=== PATIENT | male | born 1955 | race American Indian/Alaskan Native ===

== ENCOUNTER 2018-12-24 21:14 | Observation (INO) | payer MEDICAID, SELFPAY ==
[2018-12-24 21:15] VITALS: BP 125/64; PULSE 95; RESP 28; TEMP 37.2; O2SAT 93; BMI 41.5
--- NOTE | 2018-12-24 21:42 | ED.URI ---
HPI - URI/Sore Throat General Chief Complaint: Upper Respiratory Symptoms Stated Complaint: cough, hard time breathing, fever Time Seen by Provider: 12/24/18 21:24 Source: patient and family Mode of arrival: ambulatory Limitations: no limitations History of Present Illness HPI Narrative: A 63-year-old female former smoker with extensive cardiac history and diabetes presents with 3-4 days of worsening fever cough and difficulty in breathing. He has been using increased bronchodilators home with minimal relief. He admits to nausea but no vomiting. He has had no chest pain is not dizzy or lightheaded. He did have his flu shot MD Complaint: fever and cough Onset (ago): day(s) Duration: constant and progressively worsening Severity: moderate Relieving factors: nothing Exacerbating factors: exertion and speaking Able to tolerate fluids by mouth: Yes Associated symptoms: fever, chills, myalgias and headache Treatments prior to arrival: none Related Data Home Medications Medication Instructions Recorded Confirmed ProAir HFA 1 puff INHALATION Q4-6H PRN 12/25/18 12/25/18 aspirin 81 mg PO DAILY 12/25/18 12/25/18 budesonide [Pulmicort Flexhaler] 2 inh INHALATION Q12H 12/25/18 12/25/18 cetirizine 10 mg PO DAILY 12/25/18 12/25/18 ferrous sulfate 325 mg PO DAILY 12/25/18 12/25/18 fexofenadine [Allergy Relief 180 mg PO DAILY 12/25/18 12/25/18 (fexofenadine)] gabapentin 800 mg PO TID 12/25/18 12/25/18 insulin glargine-lixisenatide 30 units SUBCUT QAM 12/25/18 12/25/18 [Soliqua 100/33] ipratropium-albuterol [Combivent 1 puff INHALATION 6XD 12/25/18 12/25/18 Respimat] lisinopril 20 mg PO DAILY 12/25/18 12/25/18 metformin [Glucophage XR] 750 mg PO QPM 12/25/18 12/25/18 metoprolol succinate [Toprol XL] 50 mg PO DAILY 12/25/18 12/25/18 naproxen [Naprosyn] 500 mg PO BID 12/25/18 12/25/18 omeprazole 20 mg PO DAILY 12/25/18 12/25/18 ranitidine HCl [Zantac] 300 mg PO BEDTIME 12/25/18 12/25/18 simvastatin [Zocor] 40 mg PO QPM 12/25/18 12/25/18 tamsulosin [Flomax] 0.4 mg PO DAILY 12/25/18 12/25/18 Allergies Allergy/AdvReac Type Severity Reaction Status Date / Time No Known Drug Allergies Allergy Verified 12/24/18 21:22 Review of Systems Constitutional Reports chills, Reports fever(s), Reports headache(s), Denies lethargy and Denies weakness Eyes Denies change in vision, Denies eye discharge, Denies irritation and Denies loss of vision ENT Ears, Nose, Mouth, and Throat: Denies change in voice, Reports headache(s), Denies neck pain and Denies sore throat Cardiovascular Denies chest pain, Denies irregular heart rhythm, Denies lightheadedness, Denies palpitations, Denies dyspnea, Reports dyspnea on exertion and Denies orthopnea Respiratory Reports cough, Denies dyspnea, Reports dyspnea on exertion and Denies wheezing Gastrointestinal Gastrointestinal: Denies abdominal pain, Denies change in bowel habits, Denies diarrhea, Denies nausea and Denies vomiting Genitourinary Denies hematuria, Denies flank pain, Denies urinary incontinence and Denies urinary urgency Musculoskeletal Denies neck pain Integumentary/Breasts Denies pruritus, Denies erythema, Denies rash and Denies wounds Neurologic Denies confusion, Reports headache(s), Denies loss of vision and Denies weakness Psychiatric Denies anxiety, Denies confusion, Denies depression, Denies homicidal ideation and Denies suicidal ideation Endocrine Denies palpitations Hematologic/Lymphatic Denies easy bruising Allergic/Immunologic Denies wheezing [facility] Medical History 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 Normocephalic. No temporal or scalp tenderness. EYES: Pupils equal round and reactive. Extraocular motions intact. No scleral icterus. No injection or drainage. ENT: Nose without bleeding, purulent drainage or septal hematoma. Throat without erythema, tonsillar hypertrophy or exudate. Uvula midline. Airway patent. NECK: Trachea midline. No JVD or lymphadenopathy. Supple, nontender, no meningeal signs. CARDIOVASCULAR: Regular rate and rhythm without murmurs, gallops, or rubs. RESPIRATORY: Decreased breath sounds bilaterally with a prolonged expiratory phase and a faint crackle at the base GASTROINTESTINAL: Abdomen soft, non-tender, nondistended. No hepato-splenomegaly, or palpable masses. No guarding. EXTREMITIES: No clubbing, cyanosis, or edema. No joint tenderness, effusion, or edema noted. BACK: Nontender without deformity or crepitance. No flank tenderness. NEURO: AOx3. SKIN: No rash or erythema. Initial Vital Signs Initial Vital Signs: Vital Signs Temperature 99.0 F 12/24/18 21:15 Pulse Rate 95 H 12/24/18 21:15 Respiratory Rate 28 H 12/24/18 21:15 Blood Pressure 125/64 12/24/18 21:15 Pulse Oximetry 93 12/24/18 21:15 Course Course Narrative: There is a bit of a delay in that complete workup on this gentleman who is becoming increasingly short of breath while here. He is developing conversational dyspnea and the hope was that he would improve after some bronchodilators but if anything he seems worse. Given his diagnosis of flu, hypoxia, history of COPD and cardiac disease he will require admission for stabilization Orders Ordered: ED Orders 12/24/18 21:43 XR chest 2V Stat 12/24/18 21:50 Influenza A and B by PCR Rapid Stat 12/24/18 22:54 Consult to Respiratory Therapy Evaluate & Treat EKG-12 Lead Stat 12/24/18 23:04 Arterial Blood Gas Stat 12/24/18 23:15 B Type Natriuretic Peptide Stat Basic Metabolic Panel Stat Complete Blood Count AUTO DIFF Stat Lactate (Lactic Acid) Stat Magnesium Stat Procalcitonin Stat Troponin & CK Cardiac Panel Stat 12/24/18 23:31 Blood Culture Stat 12/25/18 Troponin & CK Cardiac Panel Routine 12/25/18 01:40 Consult to Dietitian, Adult Routine Consult to Discharge Planning Routine 12/25/18 01:41 Consult to Respiratory Therapy Evaluate & Treat 12/25/18 01:55 Urinalysis and Microscopic Routine 12/25/18 05:00 Basic Metabolic Panel DAILY Complete Blood Count AUTO DIFF DAILY 12/26/18 05:00 Basic Metabolic Panel DAILY Complete Blood Count AUTO DIFF DAILY 12/27/18 05:00 Basic Metabolic Panel DAILY Complete Blood Count AUTO DIFF DAILY Acetaminophen (Tylenol) 650 mg PO Q6HR PRN PRN Reason: As Needed for Fever/Mild Pain Albuterol/Ipratropium (Duoneb) 3 ml INH [id number] [facility] Aspirin (Aspirin Ec) 81 mg PO DAILY [facility] Bisacodyl (Dulcolax) 10 mg PO DAILY PRN PRN Reason: Constipation Budesonide (Pulmicort Flexhaler) 2 puff INH Q12H [facility] Dextrose (D50w) 25 gm IV PRN PRN; Protocol PRN Reason: Hypoglycemia Docusate Sodium (Colace) 100 mg PO BID PRN PRN Reason: Constipation Enoxaparin Sodium (Lovenox) 40 mg SUBCUT DAILY [facility] Gabapentin (Neurontin) 800 mg PO TID [facility] Sodium Chloride (Normal Saline 0.9%) 1,000 mls @ 75 mls/hr IV CONT [facility] Last Admin: 12/25/18 02:32 Dose: 75 mls/hr Ibuprofen (Advil) 600 mg PO Q6HR PRN PRN Reason: As Needed for Fever/Mild Pain Insulin Aspart (Novolog Flexpen) 0 unit SUBCUT ACHS [facility]; Protocol Lisinopril (Zestril) 20 mg PO DAILY [facility] Metformin HCl (Glucophage Xr) 750 mg PO QPM [facility] Metoprolol Succinate (Toprol Xl) 50 mg PO DAILY [facility] Naloxone HCl (Narcan) 0.2 mg IV Q2MIN PRN PRN Reason: Opiate Reversal Non-Formulary Medication (Insulin Glargine-Lixisenatide [Soliqua 100/33]) 30 units SUBCUT QAM [facility] Ondansetron HCl (Zofran) 4 mg IV Q8HR PRN PRN Reason: Nausea And Vomiting Oseltamivir Phosphate (Tamiflu) 75 mg PO BID [facility] Stop: 12/30/18 08:59 Oxycodone HCl (Percolone) 5 mg PO Q6HR PRN PRN Reason: Pain, Moderate (4-6) Pantoprazole Sodium (Protonix) 20 mg PO 0600 [facility] Prednisone (Deltasone) 40 mg PO DAILY [facility] Simvastatin (Zocor) 40 mg PO QPM [facility] Sodium Chloride (Normal Saline 0.9% Flush) 10 ml IV PRN PRN PRN Reason: Flush Tamsulosin HCl (Flomax) 0.4 mg PO DAILY [facility] Discontinued Medications Albuterol/Ipratropium (Duoneb) 3 ml INH NOW ONE Stop: 12/24/18 22:05 Last Admin: 12/24/18 22:24 Dose: 3 ml Albuterol/Ipratropium (Duoneb) 3 ml INH NOW ONE Stop: 12/24/18 22:37 Last Admin: 12/24/18 22:36 Dose: 3 ml Methylprednisolone (Solu-Medrol 125 Mg Vial) 125 mg IV NOW ONE Stop: 12/24/18 22:54 Last Admin: 12/24/18 23:29 Dose: 125 mg Oseltamivir Phosphate (Tamiflu) 75 mg PO NOW ONE Stop: 12/25/18 00:00 Last Admin: 12/25/18 00:12 Dose: 75 mg Vital Signs - 8 hr 12/24/18 21:15 12/24/18 22:09 12/24/18 22:25 Temperature 99.0 F Pulse Rate 95 H 94 H 94 H Respiratory Rate 28 H 20 30 H Blood Pressure 125/64 Blood Pressure [Left Arm] 104/53 L Pulse Oximetry 93 91 95 12/24/18 22:36 12/24/18 23:01 12/25/18 00:43 Temperature Pulse Rate 98 H 110 H 71 Respiratory Rate 24 23 Blood Pressure Blood Pressure [Left Arm] 111/66 111/39 L Pulse Oximetry 95 92 100 12/25/18 01:34 Temperature 99.2 F Pulse Rate 92 H Respiratory Rate 20 Blood Pressure 113/66 Blood Pressure [Left Arm] Pulse Oximetry 94 MDM - URI/Sore Throat Differential Diagnosis Differential diagnosis: Likely influenza Medical Records Attestation: I reviewed the patient's medical records. Lab Data Result diagrams: 12/24/18 23:15 12/24/18 23:15 Lab Results 02/23/19 02/23/19 02/23/19 Range/Units 21:50 23:04 23:15 WBC 10.0 (4.5-11.0) X10^3/uL RBC 5.17 (4.5-5.9) X10^6/uL Hgb 13.5 (13.5-17.5) g/dL Hct 42.0 (41-53) % MCV 81.2 (80-100) fL MCH 26.1 (26-34) PG MCHC 32.2 (30-36) % RDW 15.6 H (11.6-14.8) % Plt Count 331 (150-400) X10^3/uL Neut % (Auto) 69.2 (50-75) % Lymph % (Auto) 17.0 L (25-40) % [place] % (Auto) 12.9 (3-14) % Eos % (Auto) 0.4 L (2-4) % Baso % (Auto) 0.5 (0-2) % Neut # (Auto) 7000 (8210-9552) /uL Lymph # (Auto) 1700 (0308-3982) /uL [place] # (Auto) 1300 H (0-900) /uL Eos # (Auto) 0 (0-450) /uL Baso # (Auto) 100 (0-100) /uL ABG pH 7.38 (7.35-7.45) ABG pCO2 38.4 (35-45) mmHg ABG pO2 61 L (80-100) mmHg ABG HCO3 23 (22-26) mmol/L ABG Total CO2 24 (21-31) mmol/L ABG O2 Saturation 91 L (95-100) % ABG Base Excess -2.0 (-2-2) mmol/L FiO2 0.21 Sodium (137-145) mmol/L Potassium (3.4-5.1) mmol/L Chloride (98-107) mmol/L Carbon Dioxide (22-32) mmol/L BUN (9-20) mg/dL Creatinine (0.66-1.25) mg/dL Estimated GFR (>60) mL/min BUN/Creatinine Ratio (6-22) Glucose (80-110) mg/dL Lactate (0.7-2.1) mmol/L Calcium (8.4-10.2) mg/dL Magnesium (1.6-2.3) mg/dL Total Creatine Kinase (55-170) U/L CK-MB (CK-2) (<2.37) ng/mL CK-MB (CK-2) Rel Index (1.5-5.0) % Troponin I (0.01-0.034) ng/mL B-Natriuretic Peptide < 100 (<100) Procalcitonin (<0.5) ng/mL Urine Color Urine Appearance Urine pH (4.5-8.0) Ur Specific [place] (1.000-1.035) Urine Protein (Negative) Urine Glucose (UA) (Negative) g/dL Urine Ketones (NEGATIVE) Urine Occult Blood (Negative) Urine Nitrate (Negative) Urine Bilirubin (NEGATIVE) Urine Urobilinogen (0.2) E.U./dL Ur Leukocyte Esterase (NEGATIVE) Urine RBC (0-5/HPF) Urine WBC (0-5/HPF) Urine Bacteria (None) Ur Culture Indicated? Influenza A & B (PCR) Positive, type a A (Negative) 12/24/18 12/24/18 12/24/18 Range/Units 23:15 23:15 23:15 WBC (4.5-11.0) X10^3/uL RBC (4.5-5.9) X10^6/uL Hgb (13.5-17.5) g/dL Hct (41-53) % MCV (80-100) fL MCH (26-34) PG MCHC (30-36) % RDW (11.6-14.8) % Plt Count (150-400) X10^3/uL Neut % (Auto) (50-75) % Lymph % (Auto) (25-40) % [place] % (Auto) (3-14) % Eos % (Auto) (2-4) % Baso % (Auto) (0-2) % Neut # (Auto) (6637-2945) /uL Lymph # (Auto) (0655-6525) /uL [place] # (Auto) (0-900) /uL Eos # (Auto) (0-450) /uL Baso # (Auto) (0-100) /uL ABG pH (7.35-7.45) ABG pCO2 (35-45) mmHg ABG pO2 (80-100) mmHg ABG HCO3 (22-26) mmol/L ABG Total CO2 (21-31) mmol/L ABG O2 Saturation (95-100) % ABG Base Excess (-2-2) mmol/L FiO2 Sodium 137 (137-145) mmol/L Potassium 4.8 (3.4-5.1) mmol/L Chloride 102 (98-107) mmol/L Carbon Dioxide 24 (22-32) mmol/L BUN 31 H (9-20) mg/dL Creatinine 1.60 H (0.66-1.25) mg/dL Estimated GFR 43.7 L (>60) mL/min BUN/Creatinine Ratio 19.4 (6-22) Glucose 141 H (80-110) mg/dL Lactate 1.2 (0.7-2.1) mmol/L Calcium 7.7 L (8.4-10.2) mg/dL Magnesium 2.4 H (1.6-2.3) mg/dL Total Creatine Kinase 805 H (55-170) U/L CK-MB (CK-2) 3.09 H (<2.37) ng/mL CK-MB (CK-2) Rel Index 0.4 L (1.5-5.0) % Troponin I 0.025 (0.01-0.034) ng/mL B-Natriuretic Peptide (<100) Procalcitonin 0.21 (<0.5) ng/mL Urine Color Urine Appearance Urine pH (4.5-8.0) Ur Specific [place] (1.000-1.035) Urine Protein (Negative) Urine Glucose (UA) (Negative) g/dL Urine Ketones (NEGATIVE) Urine Occult Blood (Negative) Urine Nitrate (Negative) Urine Bilirubin (NEGATIVE) Urine Urobilinogen (0.2) E.U./dL Ur Leukocyte Esterase (NEGATIVE) Urine RBC (0-5/HPF) Urine WBC (0-5/HPF) Urine Bacteria (None) Ur Culture Indicated? Influenza A & B (PCR) (Negative) 12/25/18 Range/Units 01:55 WBC (4.5-11.0) X10^3/uL RBC (4.5-5.9) X10^6/uL Hgb (13.5-17.5) g/dL Hct (41-53) % MCV (80-100) fL MCH (26-34) PG MCHC (30-36) % RDW (11.6-14.8) % Plt Count (150-400) X10^3/uL Neut % (Auto) (50-75) % Lymph % (Auto) (25-40) % [place] % (Auto) (3-14) % Eos % (Auto) (2-4) % Baso % (Auto) (0-2) % Neut # (Auto) (6731-3077) /uL Lymph # (Auto) (2658-7509) /uL [place] # (Auto) (0-900) /uL Eos # (Auto) (0-450) /uL Baso # (Auto) (0-100) /uL ABG pH (7.35-7.45) ABG pCO2 (35-45) mmHg ABG pO2 (80-100) mmHg ABG HCO3 (22-26) mmol/L ABG Total CO2 (21-31) mmol/L ABG O2 Saturation (95-100) % ABG Base Excess (-2-2) mmol/L FiO2 Sodium (137-145) mmol/L Potassium (3.4-5.1) mmol/L Chloride (98-107) mmol/L Carbon Dioxide (22-32) mmol/L BUN (9-20) mg/dL Creatinine (0.66-1.25) mg/dL Estimated GFR (>60) mL/min BUN/Creatinine Ratio (6-22) Glucose (80-110) mg/dL Lactate (0.7-2.1) mmol/L Calcium (8.4-10.2) mg/dL Magnesium (1.6-2.3) mg/dL Total Creatine Kinase (55-170) U/L CK-MB (CK-2) (<2.37) ng/mL CK-MB (CK-2) Rel Index (1.5-5.0) % Troponin I (0.01-0.034) ng/mL B-Natriuretic Peptide (<100) Procalcitonin (<0.5) ng/mL Urine Color Yellow Urine Appearance Clear Urine pH 6.0 (4.5-8.0) Ur Specific [place] 1.015 (1.000-1.035) Urine Protein Trace H (Negative) Urine Glucose (UA) 3+ H (Negative) g/dL Urine Ketones Trace H (NEGATIVE) Urine Occult Blood Negative (Negative) Urine Nitrate Negative (Negative) Urine Bilirubin Negative (NEGATIVE) Urine Urobilinogen 2.0 H (0.2) E.U./dL Ur Leukocyte Esterase Negative (NEGATIVE) Urine RBC None seen (0-5/HPF) Urine WBC 0-1/hpf (0-5/HPF) Urine Bacteria None seen (None) Ur Culture Indicated? Cult not indicated Influenza A & B (PCR) (Negative) Imaging Data Chest x-ray: Radiologist's impression: [address] [address] XRay Report Signed Patient: Blas Gomez#: [id number] : 4Acct:[id number] Age/Sex: 63 / MDate of Service: 12/24/18 Loc: ED Accession Number: [id number] Procedure: XR chest 2V Ordering Provider: Nuno Ayon D.O. PROCEDURE: XR CHEST 2V INDICATIONS: cough, fever TECHNIQUE: 2 views of the chest were acquired. COMPARISON: [facility], , CHEST 1 VIEW, 05/08/2013, 0:34. None. FINDINGS: Surgical changes and devices: Median sternotomy wires. Superior median sternotomy wire is fractured. Lungs and pleura: Lungs are clear. No pleural effusions or pneumothorax. Mediastinum: Mediastinal contours are normal. Heart size is normal. Bones and chest wall: No suspicious bony abnormalities. Soft tissues appear unremarkable. IMPRESSION: No acute cardiopulmonary disease process. Dictated by: Marguerite Rasmussen MD, PhD on 12/24/2018 at 22:12 Approved by: Marguerite Rasmussen MD, PhD on 12/24/2018 at 22:13 Discharge Plan Departure Patient Disposition: Admitted As Inpatient Clinical Impression: Influenza, Acute and chronic respiratory failure with hypoxia Discharge Date/Time: 12/25/18 01:04 Interventions: ED Discharge Assessment Last Done: 12/25/18 01:02 Instructions: DI for Influenza -- Adult Additional Instructions: *You have been diagnosed with [ Influenza A ] *What to do: *Take medications as directed *Follow up with your primary care provider in 2-3 days, call for an appointment. Let them know you were seen in the Emergency Department and that we ask that you be seen in follow up *Return to ER if you should have any new, worsening or concerning symptoms, such as [ shaking chills, worsening shortness of breath, other bothersome symptoms] Referrals: Earle Go MD [Primary Care Provider] - Admit Date/Time: 12/24/18 23:59 Admit Provider: Blas Hernandez
[2018-12-24 22:09] VITALS: BP 104/53; PULSE 94; RESP 20; O2SAT 91
[2018-12-24] MEDS: ALBUTEROL/IPRATROPIUM 3 ML AMPUL INH ×2 (22:24→22:36)
[2018-12-24 22:25] VITALS: PULSE 94; RESP 30; O2SAT 95
--- NOTE | 2018-12-24 22:26 | ED_ITS ---
HPI - URI/Sore Throat General Chief Complaint: Upper Respiratory Symptoms Stated Complaint: cough, hard time breathing, fever Time Seen by Provider: 12/24/18 21:24 Source: patient and family Mode of arrival: ambulatory Limitations: no limitations History of Present Illness HPI Narrative: A 63-year-old female former smoker with extensive cardiac history and diabetes presents with 3-4 days of worsening fever cough and difficulty in breathing. He has been using increased bronchodilators home with minimal relief. He admits to nausea but no vomiting. He has had no chest pain is not dizzy or lightheaded. He did have his flu shot MD Complaint: fever and cough Onset (ago): day(s) Duration: constant and progressively worsening Severity: moderate Relieving factors: nothing Exacerbating factors: exertion and speaking Able to tolerate fluids by mouth: Yes Associated symptoms: fever, chills, myalgias and headache Treatments prior to arrival: none Related Data Home Medications Medication Instructions Recorded Confirmed ProAir HFA 1 puff INHALATION Q4-6H PRN 12/25/18 12/25/18 aspirin 81 mg PO DAILY 12/25/18 12/25/18 budesonide [Pulmicort Flexhaler] 2 inh INHALATION Q12H 12/25/18 12/25/18 cetirizine 10 mg PO DAILY 12/25/18 12/25/18 ferrous sulfate 325 mg PO DAILY 12/25/18 12/25/18 fexofenadine [Allergy Relief 180 mg PO DAILY 12/25/18 12/25/18 (fexofenadine)] gabapentin 800 mg PO TID 12/25/18 12/25/18 insulin glargine-lixisenatide 30 units SUBCUT QAM 12/25/18 12/25/18 [Soliqua 100/33] ipratropium-albuterol [Combivent 1 puff INHALATION 6XD 12/25/18 12/25/18 Respimat] lisinopril 20 mg PO DAILY 12/25/18 12/25/18 metformin [Glucophage XR] 750 mg PO QPM 12/25/18 12/25/18 metoprolol succinate [Toprol XL] 50 mg PO DAILY 12/25/18 12/25/18 naproxen [Naprosyn] 500 mg PO BID 12/25/18 12/25/18 omeprazole 20 mg PO DAILY 12/25/18 12/25/18 ranitidine HCl [Zantac] 300 mg PO BEDTIME 12/25/18 12/25/18 simvastatin [Zocor] 40 mg PO QPM 12/25/18 12/25/18 tamsulosin [Flomax] 0.4 mg PO DAILY 12/25/18 12/25/18 Allergies Allergy/AdvReac Type Severity Reaction Status Date / Time No Known Drug Allergies Allergy Verified 12/24/18 21:22 Review of Systems Constitutional Reports chills, Reports fever(s), Reports headache(s), Denies lethargy and Denies weakness Eyes Denies change in vision, Denies eye discharge, Denies irritation and Denies loss of vision ENT Ears, Nose, Mouth, and Throat: Denies change in voice, Reports headache(s), Denies neck pain and Denies sore throat Cardiovascular Denies chest pain, Denies irregular heart rhythm, Denies lightheadedness, Denies palpitations, Denies dyspnea, Reports dyspnea on exertion and Denies orthopnea Respiratory Reports cough, Denies dyspnea, Reports dyspnea on exertion and Denies wheezing Gastrointestinal Gastrointestinal: Denies abdominal pain, Denies change in bowel habits, Denies diarrhea, Denies nausea and Denies vomiting Genitourinary Denies hematuria, Denies flank pain, Denies urinary incontinence and Denies urinary urgency Musculoskeletal Denies neck pain Integumentary/Breasts Denies pruritus, Denies erythema, Denies rash and Denies wounds Neurologic Denies confusion, Reports headache(s), Denies loss of vision and Denies weakness Psychiatric Denies anxiety, Denies confusion, Denies depression, Denies homicidal ideation and Denies suicidal ideation Endocrine Denies palpitations Hematologic/Lymphatic Denies easy bruising Allergic/Immunologic Denies wheezing [facility] Medical History 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 Normocephalic. No temporal or scalp tenderness. EYES: Pupils equal round and reactive. Extraocular motions intact. No scleral icterus. No injection or drainage. ENT: Nose without bleeding, purulent drainage or septal hematoma. Throat without erythema, tonsillar hypertrophy or exudate. Uvula midline. Airway patent. NECK: Trachea midline. No JVD or lymphadenopathy. Supple, nontender, no meningeal signs. CARDIOVASCULAR: Regular rate and rhythm without murmurs, gallops, or rubs. RESPIRATORY: Decreased breath sounds bilaterally with a prolonged expiratory phase and a faint crackle at the base GASTROINTESTINAL: Abdomen soft, non-tender, nondistended. No hepato- splenomegaly, or palpable masses. No guarding. EXTREMITIES: No clubbing, cyanosis, or edema. No joint tenderness, effusion, or edema noted. BACK: Nontender without deformity or crepitance. No flank tenderness. NEURO: AOx3. SKIN: No rash or erythema. Initial Vital Signs Initial Vital Signs: Vital Signs Temperature 99.0 F 12/24/18 21:15 Pulse Rate 95 H 12/24/18 21:15 Respiratory Rate 28 H 12/24/18 21:15 Blood Pressure 125/64 12/24/18 21:15 Pulse Oximetry 93 12/24/18 21:15 Course Course Narrative: There is a bit of a delay in that complete workup on this gentleman who is becoming increasingly short of breath while here. He is developing conversational dyspnea and the hope was that he would improve after some bronchodilators but if anything he seems worse. Given his diagnosis of flu, hypoxia, history of COPD and cardiac disease he will require admission for stabilization Orders Ordered: ED Orders 12/24/18 21:43 XR chest 2V Stat 12/24/18 21:50 Influenza A and B by PCR Rapid Stat 12/24/18 22:54 Consult to Respiratory Therapy Evaluate & Treat EKG-12 Lead Stat 12/24/18 23:04 Arterial Blood Gas Stat 12/24/18 23:15 B Type Natriuretic Peptide Stat Basic Metabolic Panel Stat Complete Blood Count AUTO DIFF Stat Lactate (Lactic Acid) Stat Magnesium Stat Procalcitonin Stat Troponin & CK Cardiac Panel Stat 12/24/18 23:31 Blood Culture Stat 12/25/18 Troponin & CK Cardiac Panel Routine 12/25/18 01:40 Consult to Dietitian, Adult Routine Consult to Discharge Planning Routine 12/25/18 01:41 Consult to Respiratory Therapy Evaluate & Treat 12/25/18 01:55 Urinalysis and Microscopic Routine 12/25/18 05:00 Basic Metabolic Panel DAILY Complete Blood Count AUTO DIFF DAILY 12/26/18 05:00 Basic Metabolic Panel DAILY Complete Blood Count AUTO DIFF DAILY 12/27/18 05:00 Basic Metabolic Panel DAILY Complete Blood Count AUTO DIFF DAILY Acetaminophen (Tylenol) 650 mg PO Q6HR PRN PRN Reason: As Needed for Fever/Mild Pain Albuterol/Ipratropium (Duoneb) 3 ml INH [id number] [facility] Aspirin (Aspirin Ec) 81 mg PO DAILY [facility] Bisacodyl (Dulcolax) 10 mg PO DAILY PRN PRN Reason: Constipation Budesonide (Pulmicort Flexhaler) 2 puff INH Q12H [facility] Dextrose (D50w) 25 gm IV PRN PRN; Protocol PRN Reason: Hypoglycemia Docusate Sodium (Colace) 100 mg PO BID PRN PRN Reason: Constipation Enoxaparin Sodium (Lovenox) 40 mg SUBCUT DAILY [facility] Gabapentin (Neurontin) 800 mg PO TID [facility] Sodium Chloride (Normal Saline 0.9%) 1,000 mls @ 75 mls/hr IV CONT [facility] Last Admin: 12/25/18 02:32 Dose: 75 mls/hr Ibuprofen (Advil) 600 mg PO Q6HR PRN PRN Reason: As Needed for Fever/Mild Pain Insulin Aspart (Novolog Flexpen) 0 unit SUBCUT ACHS [facility]; Protocol Lisinopril (Zestril) 20 mg PO DAILY [facility] Metformin HCl (Glucophage Xr) 750 mg PO QPM [facility] Metoprolol Succinate (Toprol Xl) 50 mg PO DAILY [facility] Naloxone HCl (Narcan) 0.2 mg IV Q2MIN PRN PRN Reason: Opiate Reversal Non-Formulary Medication (Insulin Glargine-Lixisenatide [Soliqua 100/33]) 30 units SUBCUT QAM [facility] Ondansetron HCl (Zofran) 4 mg IV Q8HR PRN PRN Reason: Nausea And Vomiting Oseltamivir Phosphate (Tamiflu) 75 mg PO BID [facility] Stop: 12/30/18 08:59 Oxycodone HCl (Percolone) 5 mg PO Q6HR PRN PRN Reason: Pain, Moderate (4-6) Pantoprazole Sodium (Protonix) 20 mg PO 0600 [facility] Prednisone (Deltasone) 40 mg PO DAILY [facility] Simvastatin (Zocor) 40 mg PO QPM [facility] Sodium Chloride (Normal Saline 0.9% Flush) 10 ml IV PRN PRN PRN Reason: Flush Tamsulosin HCl (Flomax) 0.4 mg PO DAILY [facility] Discontinued Medications Albuterol/Ipratropium (Duoneb) 3 ml INH NOW ONE Stop: 12/24/18 22:05 Last Admin: 12/24/18 22:24 Dose: 3 ml Albuterol/Ipratropium (Duoneb) 3 ml INH NOW ONE Stop: 12/24/18 22:37 Last Admin: 12/24/18 22:36 Dose: 3 ml Methylprednisolone (Solu-Medrol 125 Mg Vial) 125 mg IV NOW ONE Stop: 12/24/18 22:54 Last Admin: 12/24/18 23:29 Dose: 125 mg Oseltamivir Phosphate (Tamiflu) 75 mg PO NOW ONE Stop: 12/25/18 00:00 Last Admin: 12/25/18 00:12 Dose: 75 mg Vital Signs - 8 hr 12/24/18 21:15 12/24/18 22:09 12/24/18 22:25 Temperature 99.0 F Pulse Rate 95 H 94 H 94 H Respiratory Rate 28 H 20 30 H Blood Pressure 125/64 Blood Pressure [Left Arm] 104/53 L Pulse Oximetry 93 91 95 12/24/18 22:36 12/24/18 23:01 12/25/18 00:43 Temperature Pulse Rate 98 H 110 H 71 Respiratory Rate 24 23 Blood Pressure Blood Pressure [Left Arm] 111/66 111/39 L Pulse Oximetry 95 92 100 12/25/18 01:34 Temperature 99.2 F Pulse Rate 92 H Respiratory Rate 20 Blood Pressure 113/66 Blood Pressure [Left Arm] Pulse Oximetry 94 MDM - URI/Sore Throat Differential Diagnosis Differential diagnosis: Likely influenza Medical Records Attestation: I reviewed the patient's medical records. Lab Data Result diagrams: 12/24/18 23:15 12/24/18 23:15 Lab Results 02/23/19 02/23/19 02/23/19 Range/Units 21:50 23:04 23:15 WBC 10.0 (4.5-11.0) X10^3/uL RBC 5.17 (4.5-5.9) X10^6/uL Hgb 13.5 (13.5-17.5) g/dL Hct 42.0 (41-53) % MCV 81.2 (80-100) fL MCH 26.1 (26-34) PG MCHC 32.2 (30-36) % RDW 15.6 H (11.6-14.8) % Plt Count 331 (150-400) X10^3/uL Neut % (Auto) 69.2 (50-75) % Lymph % (Auto) 17.0 L (25-40) % Patrick % (Auto) 12.9 (3-14) % Eos % (Auto) 0.4 L (2-4) % Baso % (Auto) 0.5 (0-2) % Neut # (Auto) 7000 (2869-6095) /uL Lymph # (Auto) 1700 (6939-3917) /uL Patrick # (Auto) 1300 H (0-900) /uL Eos # (Auto) 0 (0-450) /uL Baso # (Auto) 100 (0-100) /uL ABG pH 7.38 (7.35-7.45) ABG pCO2 38.4 (35-45) mmHg ABG pO2 61 L (80-100) mmHg ABG HCO3 23 (22-26) mmol/L ABG Total CO2 24 (21-31) mmol/L ABG O2 Saturation 91 L (95-100) % ABG Base Excess -2.0 (-2-2) mmol/L FiO2 0.21 Sodium (137-145) mmol/L Potassium (3.4-5.1) mmol/L Chloride (98-107) mmol/L Carbon Dioxide (22-32) mmol/L BUN (9-20) mg/dL Creatinine (0.66-1.25) mg/dL Estimated GFR (>60) mL/min BUN/Creatinine Ratio (6-22) Glucose (80-110) mg/dL Lactate (0.7-2.1) mmol/L Calcium (8.4-10.2) mg/dL Magnesium (1.6-2.3) mg/dL Total Creatine Kinase (55-170) U/L CK-MB (CK-2) (<2.37) ng/mL CK-MB (CK-2) Rel Index (1.5-5.0) % Troponin I (0.01-0.034) ng/mL B-Natriuretic Peptide < 100 (<100) Procalcitonin (<0.5) ng/mL Urine Color Urine Appearance Urine pH (4.5-8.0) Ur Specific [place] (1.000-1.035) Urine Protein (Negative) Urine Glucose (UA) (Negative) g/dL Urine Ketones (NEGATIVE) Urine Occult Blood (Negative) Urine Nitrate (Negative) Urine Bilirubin (NEGATIVE) Urine Urobilinogen (0.2) E.U./dL Ur Leukocyte Esterase (NEGATIVE) Urine RBC (0-5/HPF) Urine WBC (0-5/HPF) Urine Bacteria (None) Ur Culture Indicated? Influenza A & B (PCR) Positive, type a A (Negative) 12/24/18 12/24/18 12/24/18 Range/Units 23:15 23:15 23:15 WBC (4.5-11.0) X10^3/uL RBC (4.5-5.9) X10^6/uL Hgb (13.5-17.5) g/dL Hct (41-53) % MCV (80-100) fL MCH (26-34) PG MCHC (30-36) % RDW (11.6-14.8) % Plt Count (150-400) X10^3/uL Neut % (Auto) (50-75) % Lymph % (Auto) (25-40) % Patrick % (Auto) (3-14) % Eos % (Auto) (2-4) % Baso % (Auto) (0-2) % Neut # (Auto) (9798-8841) /uL Lymph # (Auto) (5672-3932) /uL Patrick # (Auto) (0-900) /uL Eos # (Auto) (0-450) /uL Baso # (Auto) (0-100) /uL ABG pH (7.35-7.45) ABG pCO2 (35-45) mmHg ABG pO2 (80-100) mmHg ABG HCO3 (22-26) mmol/L ABG Total CO2 (21-31) mmol/L ABG O2 Saturation (95-100) % ABG Base Excess (-2-2) mmol/L FiO2 Sodium 137 (137-145) mmol/L Potassium 4.8 (3.4-5.1) mmol/L Chloride 102 (98-107) mmol/L Carbon Dioxide 24 (22-32) mmol/L BUN 31 H (9-20) mg/dL Creatinine 1.60 H (0.66-1.25) mg/dL Estimated GFR 43.7 L (>60) mL/min BUN/Creatinine Ratio 19.4 (6-22) Glucose 141 H (80-110) mg/dL Lactate 1.2 (0.7-2.1) mmol/L Calcium 7.7 L (8.4-10.2) mg/dL Magnesium 2.4 H (1.6-2.3) mg/dL Total Creatine Kinase 805 H (55-170) U/L CK-MB (CK-2) 3.09 H (<2.37) ng/mL CK-MB (CK-2) Rel Index 0.4 L (1.5-5.0) % Troponin I 0.025 (0.01-0.034) ng/mL B-Natriuretic Peptide (<100) Procalcitonin 0.21 (<0.5) ng/mL Urine Color Urine Appearance Urine pH (4.5-8.0) Ur Specific [place] (1.000-1.035) Urine Protein (Negative) Urine Glucose (UA) (Negative) g/dL Urine Ketones (NEGATIVE) Urine Occult Blood (Negative) Urine Nitrate (Negative) Urine Bilirubin (NEGATIVE) Urine Urobilinogen (0.2) E.U./dL Ur Leukocyte Esterase (NEGATIVE) Urine RBC (0-5/HPF) Urine WBC (0-5/HPF) Urine Bacteria (None) Ur Culture Indicated? Influenza A & B (PCR) (Negative) 12/25/18 Range/Units 01:55 WBC (4.5-11.0) X10^3/uL RBC (4.5-5.9) X10^6/uL Hgb (13.5-17.5) g/dL Hct (41-53) % MCV (80-100) fL MCH (26-34) PG MCHC (30-36) % RDW (11.6-14.8) % Plt Count (150-400) X10^3/uL Neut % (Auto) (50-75) % Lymph % (Auto) (25-40) % Patrick % (Auto) (3-14) % Eos % (Auto) (2-4) % Baso % (Auto) (0-2) % Neut # (Auto) (4941-7908) /uL Lymph # (Auto) (9576-7745) /uL Patrick # (Auto) (0-900) /uL Eos # (Auto) (0-450) /uL Baso # (Auto) (0-100) /uL ABG pH (7.35-7.45) ABG pCO2 (35-45) mmHg ABG pO2 (80-100) mmHg ABG HCO3 (22-26) mmol/L ABG Total CO2 (21-31) mmol/L ABG O2 Saturation (95-100) % ABG Base Excess (-2-2) mmol/L FiO2 Sodium (137-145) mmol/L Potassium (3.4-5.1) mmol/L Chloride (98-107) mmol/L Carbon Dioxide (22-32) mmol/L BUN (9-20) mg/dL Creatinine (0.66-1.25) mg/dL Estimated GFR (>60) mL/min BUN/Creatinine Ratio (6-22) Glucose (80-110) mg/dL Lactate (0.7-2.1) mmol/L Calcium (8.4-10.2) mg/dL Magnesium (1.6-2.3) mg/dL Total Creatine Kinase (55-170) U/L CK-MB (CK-2) (<2.37) ng/mL CK-MB (CK-2) Rel Index (1.5-5.0) % Troponin I (0.01-0.034) ng/mL B-Natriuretic Peptide (<100) Procalcitonin (<0.5) ng/mL Urine Color Yellow Urine Appearance Clear Urine pH 6.0 (4.5-8.0) Ur Specific [place] 1.015 (1.000-1.035) Urine Protein Trace H (Negative) Urine Glucose (UA) 3+ H (Negative) g/dL Urine Ketones Trace H (NEGATIVE) Urine Occult Blood Negative (Negative) Urine Nitrate Negative (Negative) Urine Bilirubin Negative (NEGATIVE) Urine Urobilinogen 2.0 H (0.2) E.U./dL Ur Leukocyte Esterase Negative (NEGATIVE) Urine RBC None seen (0-5/HPF) Urine WBC 0-1/hpf (0-5/HPF) Urine Bacteria None seen (None) Ur Culture Indicated? Cult not indicated Influenza A & B (PCR) (Negative) Imaging Data Chest x-ray: Radiologist's impression: [address] [address] XRay Report Signed Patient: Blas Gomez#: [id number] : 4Acct:[id number] Age/Sex: 63 / MDate of Service: 12/24/18 Loc: ED Accession Number: [id number] Procedure: XR chest 2V Ordering Provider: Nuno Ayon D.O. PROCEDURE: XR CHEST 2V INDICATIONS: cough, fever TECHNIQUE: 2 views of the chest were acquired. COMPARISON: [facility], , CHEST 1 VIEW, 05/08/2013, 0:34. None. FINDINGS: Surgical changes and devices: Median sternotomy wires. Superior median sternotomy wire is fractured. Lungs and pleura: Lungs are clear. No pleural effusions or pneumothorax. Mediastinum: Mediastinal contours are normal. Heart size is normal. Bones and chest wall: No suspicious bony abnormalities. Soft tissues appear unremarkable. IMPRESSION: No acute cardiopulmonary disease process. Dictated by: Marguerite Rasmussen MD, PhD on 12/24/2018 at 22:12 Approved by: Marguerite Rasmussen MD, PhD on 12/24/2018 at 22:13 Discharge Plan Departure Patient Disposition: Admitted As Inpatient Clinical Impression: Influenza, Acute and chronic respiratory failure with hypoxia Discharge Date/Time: 12/25/18 01:04 Interventions: ED Discharge Assessment Last Done: 12/25/18 01:02 Instructions: DI for Influenza -- Adult Additional Instructions: *You have been diagnosed with [ Influenza A ] *What to do: *Take medications as directed *Follow up with your primary care provider in 2-3 days, call for an appointment. Let them know you were seen in the Emergency Department and that we ask that you be seen in follow up *Return to ER if you should have any new, worsening or concerning symptoms, such as [ shaking chills, worsening shortness of breath, other bothersome symptoms] Referrals: Earle Go MD [Primary Care Provider] - Admit Date/Time: 12/24/18 23:59 Admit Provider: Blas Hernandez
[2018-12-24 22:36] VITALS: PULSE 98; RESP 24; O2SAT 95
--- NOTE | 2018-12-24 22:44 | RT ---
PRODUCTIVE COUGH NOTED (PT SWALLOWED)
[2018-12-24 23:01] VITALS: BP 111/66; PULSE 110; O2SAT 92
[2018-12-24 23:21] LABS: Fractionated Inspired Oxygen 0.21; HCO3 ABG 23 mmol/L (22-26); Oxygen Saturation ABG 91 % (95-100); PCO2 ABG 38.4 mmHg (35-45); PO2 ABG 61 mmHg (80-100); TCO2 ABG 24 mmol/L (21-31); pH ABG 7.38 (7.35-7.45)
[2018-12-24 23:29] LABS: Add Manual Diff / Slide Review NO; Basophils Absolute Auto 100 /uL (0-100); Basophils Percent Auto 0.5 % (0-2); Eosinophils Absolute Auto 0 /uL (0-450); Eosinophils Percent Auto 0.4 % (2-4); Hemoglobin 13.5 g/dL (13.5-17.5); Lymphocytes Absolute Auto 1700 /uL (1100-4500); Mean Corpuscular HGB Conc 32.2 % (30-36); Mean Corpuscular Hemoglobin 26.1 PG (26-34); Mean Corpuscular Volume 81.2 fL (80-100); Monocytes Absolute Auto 1300 /uL (0-900); Monocytes Percent Auto 12.9 % (3-14); Neutrophils Absolute Auto 7000 /uL (1500-7000); Neutrophils Percent Auto 69.2 % (50-75); Platelet Count 331 X10^3/uL (150-400); Red Blood Cell Count 5.17 X10^6/uL (4.5-5.9); Red Cell Distribution Width 15.6 % (11.6-14.8)
[2018-12-24] MEDS: methylPREDNISolone 125 MG/2 ML VIAL IV (23:29)
[2018-12-24 23:39] LABS: Lactate (Lactic Acid) 1.2 mmol/L (0.7-2.1)
[2018-12-24 23:40] LABS: BUN Creatinine Ratio 19.4 (6-22); Blood Urea Nitrogen 31 mg/dL (9-20); Calcium 7.7 mg/dL (8.4-10.2); Carbon Dioxide 24 mmol/L (22-32); Chloride 102 mmol/L (98-107); Creatine Kinase 805 U/L (55-170); Estimated Glomerular Filt Rate 43.7 mL/min (>60); Glucose 141 mg/dL (80-110); HEMOLYSIS < 15 (0-50); Magnesium 2.4 mg/dL (1.6-2.3); Potassium 4.8 mmol/L (3.4-5.1); Sodium 137 mmol/L (137-145)
[2018-12-24 23:51] LABS: Troponin I 0.025 ng/mL (0.01-0.034)
[2018-12-24 23:54] LABS: CKMB % Relative Index 0.4 % (1.5-5.0); Creatine Kinase MB 3.09 ng/mL (<2.37)
[2018-12-24 23:56] LABS: B Type Natriuretic Peptide < 100 (<100); Procalcitonin 0.21 ng/mL (<0.5)
[2018-12-25] MEDS: OSELTAMIVIR 75 MG CAPSULE PO ×2 (00:12→08:45)
[2018-12-25 00:43] VITALS: BP 111/39; PULSE 71; RESP 23; O2SAT 100
[2018-12-25 01:27] VITALS: BMI 38.2
[2018-12-25 01:34] VITALS: BP 113/66; PULSE 92; RESP 20; TEMP 37.3; O2SAT 94
[2018-12-25 02:15] LABS: Bacteria Urine None Seen; RBC Urine None Seen (0-5/HPF)
[2018-12-25 02:16] LABS: Appearance Urine UA CLEAR; Bilirubin Urine UA NEGATIVE (NEGATIVE); Color Urine UA YELLOW; Glucose Urine UA 3+ g/dL (Negative); Ketones Urine UA TRACE (NEGATIVE); Leukocyte Esterase Urine UA NEGATIVE (NEGATIVE); Nitrite Urine UA NEGATIVE (Negative); Occult Blood Urine UA NEGATIVE (Negative); Protein Urine UA TRACE (Negative); Specific Gravity Urine UA 1.015 (1.000-1.035)
--- NOTE | 2018-12-25 02:20 | PC.ADMIT ---
0117 Patient admitted from ER per stretcher to room 204. Is alert and oriented. Breath sounds very diminished throughout and has congested sounding non productive cough. States he has been coughing for several days and just couldn't do it anymore so came to ER. On oxygen at 2L/min per NC with sat of 94%. HRR; placed on tele and ICU verbally states patient is in SR. Denies nausea. BT present and is having loose, yellow stools (incontinent of small amount when admitted). Denies dysuria, frequency or urgency; urine obtained and sent to lab. Able to turn self in bed. Does seem weak when assisted up so instructed to call for assistance prior to getting out of bed in order to prevent falls; verbalizes understanding. Skin in good condition except for some scarring and scabbed lesions on bilateral LE. States he has neuropathy in feet but as long as he takes Gabapentin does not have any current numbness/tingling. SCD's placed as well as telemetry and continuous pulse oximetry per orders. Placed on droplet precautions as is positive for influenza A. Fall risk score is high so bed alarm is activated. [id number] [facility] [address] [facility] Admission Note: The patient,Blas Gomez,63 y/o, was given written information regarding hospital policies, unit procedures and contact persons. Patient's smoking status: Former smoker. Vital Signs - 8 hr 12/24/18 21:15 12/24/18 22:09 12/24/18 22:25 Temperature 99.0 F Pulse Rate 95 H 94 H 94 H Respiratory Rate 28 H 20 30 H Blood Pressure 125/64 Blood Pressure [Left Arm] 104/53 L Pulse Oximetry 93 91 95 12/24/18 22:36 12/24/18 23:01 12/25/18 00:43 Temperature Pulse Rate 98 H 110 H 71 Respiratory Rate 24 23 Blood Pressure Blood Pressure [Left Arm] 111/66 111/39 L Pulse Oximetry 95 92 100 12/25/18 01:34 Temperature 99.2 F Pulse Rate 92 H Respiratory Rate 20 Blood Pressure 113/66 Blood Pressure [Left Arm] Pulse Oximetry 94
[2018-12-25 02:23] LABS: WBC Urine 0-1/HPF (0-5/HPF)
[2018-12-25 02:24] LABS: Culture Indicated Urine Cult Not Indicated
[2018-12-25] MEDS: SODIUM CHLORIDE 0.9% 1,000 ML 75 ML IV (02:32)
[2018-12-25] MEDS: SODIUM CHLORIDE 0.9% FLUSH 10 ML IV (02:32)
--- NOTE | 2018-12-25 03:07 | PM.HP.1 ---
History of Present Illness Date Patient Seen: 12/25/18 Time Patient Seen: 00:45 Chief complaint: cough, hard time breathing, fever Narrative: This is a 63-year-old male with a history of COPD, emphysema, insulin-dependent diabetes, coronary artery disease status post [place] with a history of CABG x4, hypertension and hyperlipidemia presents to the ER with shortness of breath. At the time of encounter the patient is quite drowsy and will drift off to sleep during interview. Much of the information is obtained from the patient's at bedside. Patient has been having chronic cough for months however 3 days ago patient became much more symptomatic. He has been coughing more and complaining of wheezing with chest tightness and nausea has been progressive. He has complained of headaches body aches fevers and nausea. He has not taken anything for his symptoms. He reports nothing makes his symptoms better inactivity exist symptoms worse He presented today due to increased shortness of breath and tachypnea unresponsive to his usual inhaler therapy. The patient has had multiple hospitalizations for exacerbation of COPD requiring prednisone treatment but has never required intubation. Patient also has a history of diabetes that has been difficult control the patient's saying blood sugars been running in the 3-500 range in tele was recently started on Soliquia. Since starting on the new medication patient has been experiencing hypoglycemic episodes with blood sugars low as 52. The patient complains of headaches and abdominal pain associated with coughing. He denies head congestion or sore throat. Reports no palpitations. He denies constipation or diarrhea. He has a history of nocturia 3-4 times nightly and since starting tamsulosin will frequently sleeps through the night. The patient presented to the ER at 9:15 p.m. his vital signs were temperature of 99.0? degrees, blood pressure 125/64, heart rate 95, respiratory rate of 28 and oxygen saturation of 93% on room air. Lows monitored SpO2 was 91%. Patient did have an ABG drawn which found a pH of 7.38, pCO2 of 38.4, hypoxemia with a PO2 of 61, bicarb 23 and a base excess of -2. On laboratory analysis his CBC is within normal limits as are his electrolytes however he does have a BUN of 31 and creatinine 1.6 with a glucose of 141. He has an EGFR of 43.7. His magnesium was 2.4 and his procalcitonin is 0.21. Did test positive for flu A. He also had elevated total CK of 805, a CK-MB elevated at 3.09 with a relative index that was low at 0.4. His troponin was 0.025. Blood cultures were also drawn. Patient has received albuterol treatments x2 in addition to methylprednisolone 125 mg. He is also given initial dose of Tamiflu 75 mg. The patient is admitted for influenza A an exacerbation of COPD with associated hypoxemia. Patient History Medical History COPD (chronic obstructive pulmonary disease) with emphysema (Acute) Coronary artery disease (Acute) Diabetes mellitus (Acute) Hypertension (Acute) Myocardial infarction (Acute) Surgical History History of cholecystectomy (Acute) Hx of four vessel coronary artery bypass graft (Acute) Social History household members: spouse Smoking Status: Former smoker alcohol intake: former Family & Social History Family History Father No problems noted. Mother Hypertension Brother No problems noted. Sister No problems noted. Social History: household members spouse Prior Living Arrangements Apartment/Condo Safety & Behavioral: Feels Safe in Current Yes Environment Been Physically Hurt or No Threatened By a Person Suicidal Ideation Description None Tobacco & Substance use: Tobacco type cigarettes Smoking Status Former smoker alcohol intake former alcohol intake frequency holiday/special occasion Substance Use Type does not use Comment: The patient lives in a single family home with his spouse and adult son. The patient's parents are both his father passing away from complications of alcoholism and his mother with history of hypertension past March of old age at 94. Has a brother that is it is from bone cancer and a sister from lung cancer. He has 4 other siblings that are in good health. Has 3 biological children who all are in good health. Occupation: The patient has worked in a [employer] and retired 1 year ago. Smoking: Patient is a past smoker having quit in 2013 with a 60 pack year smoking history Alcohol: Patient quit drinking in 1987 Substance use: Denies recreational pharmaceuticals or cannabis use Advanced directives patient wishes to be a full code and designates his Earline to be his surrogate decision maker. Meds Home Medications Medication Instructions Recorded Confirmed Type ProAir HFA 1 puff INHALATION Q4-6H PRN 12/25/18 12/25/18 History aspirin 81 mg PO DAILY 12/25/18 12/25/18 History budesonide [Pulmicort Flexhaler] 2 inh INHALATION Q12H 12/25/18 12/25/18 History cetirizine 10 mg PO DAILY 12/25/18 12/25/18 History ferrous sulfate 325 mg PO DAILY 12/25/18 12/25/18 History fexofenadine [Allergy Relief 180 mg PO DAILY 12/25/18 12/25/18 History (fexofenadine)] gabapentin 800 mg PO TID 12/25/18 12/25/18 History insulin glargine-lixisenatide 30 units SUBCUT QAM 12/25/18 12/25/18 History [Soliqua 100/33] ipratropium-albuterol [Combivent 1 puff INHALATION 6XD 12/25/18 12/25/18 History Respimat] lisinopril 20 mg PO DAILY 12/25/18 12/25/18 History metformin [Glucophage XR] 750 mg PO QPM 12/25/18 12/25/18 History metoprolol succinate [Toprol XL] 50 mg PO DAILY 12/25/18 12/25/18 History naproxen [Naprosyn] 500 mg PO BID 12/25/18 12/25/18 History omeprazole 20 mg PO DAILY 12/25/18 12/25/18 History ranitidine HCl [Zantac] 300 mg PO BEDTIME 12/25/18 12/25/18 History simvastatin [Zocor] 40 mg PO QPM 12/25/18 12/25/18 History tamsulosin [Flomax] 0.4 mg PO DAILY 12/25/18 12/25/18 History Allergies Allergy/AdvReac Type Severity Reaction Status Date / Time No Known Drug Allergies Allergy Verified 12/24/18 21:22 Review of Systems Review of Systems All systems reviewed & are unremarkable except as noted in HPI and below Exam Vital Signs (past 8 hours): - 12/24/18 21:15 12/24/18 22:09 12/24/18 22:25 Temperature 99.0 F Pulse Rate 95 H 94 H 94 H Respiratory Rate 28 H 20 30 H Blood Pressure 125/64 Blood Pressure [Left Arm] 104/53 L Pulse Oximetry 93 91 95 12/24/18 22:36 12/24/18 23:01 12/25/18 00:43 Temperature Pulse Rate 98 H 110 H 71 Respiratory Rate 24 23 Blood Pressure Blood Pressure [Left Arm] 111/66 111/39 L Pulse Oximetry 95 92 100 12/25/18 01:34 Temperature 99.2 F Pulse Rate 92 H Respiratory Rate 20 Blood Pressure 113/66 Blood Pressure [Left Arm] Pulse Oximetry 94 Oxygen Delivery Method Nasal Cannula Oxygen Flow Rate 2 Narrative Exam Narrative: General: Well-developed obese male patient with a BMI of 38.3 was drowsy but in no acute distress. Skin: Warm, dry, pink, no rashes, no visible lesions HEENT: Normocephalic, PERRLA, EOMs intact without nystagmus, conjunctiva moist, sclera is anicteric, hearing grossly normal, no sinus tenderness to percussion, no rhinorrhea, oropharynx is dry and pink without lesions or exudate, uvula midline, posterior pharynx without inflammation, no cervical lymphadenopathy Neck: Supple, no masses, no thyromegaly, trachea midline, no carotid bruits or JVD, no supraclavicular lymphadenopathy Cardiac: Tachycardic rate with a regular rhythm, S1-S2, faint systolic murmur, no gallops or rubs, 2+ radial pulse, 1+ dorsalis pedis pulse, capillary refill is brisk, no edema Chest: Symmetrical movement, abdominal breathing, respirations non labored, nonproductive cough present, BS with inspiratory and expiratory wheezing, diminished lung sounds bibasilar without coarseness or crackles Abdomen: Soft, obese, general abdominal wall tenderness palpation, no guarding, no peritoneal signs,, no masses or organomegaly, no flank or suprapubic pain, BS normal. Back: Normal curvature, no tenderness to palpation, no CVA tenderness on percussion Extremities: Full ROM, no synovial effusions or deformities, strength 5/5 and symmetrical Neuro: GCS 14, wakes with stimulation to AAOx4, cranial nerves II-XII grossly intact, no paresthesias Psych: Drowsy, cooperative, stable mood and congruent affect Objective Labs Result Diagrams: 12/24/18 23:15 12/24/18 23:15 Labs: Laboratory Results - last 24 hr 02/12/24/18 12/24/18 21:50 23:04 23:15 WBC 10.0 RBC 5.17 Hgb 13.5 Hct 42.0 MCV 81.2 MCH 26.1 MCHC 32.2 RDW 15.6 H Plt Count 331 Neut % (Auto) 69.2 Lymph % (Auto) 17.0 L [place] % (Auto) 12.9 Eos % (Auto) 0.4 L Baso % (Auto) 0.5 Neut # (Auto) 7000 Lymph # (Auto) 1700 [place] # (Auto) 1300 H Eos # (Auto) 0 Baso # (Auto) 100 ABG pH 7.38 ABG pCO2 38.4 ABG pO2 61 L ABG HCO3 23 ABG Total CO2 24 ABG O2 Saturation 91 L ABG Base Excess -2.0 FiO2 0.21 Sodium Potassium Chloride Carbon Dioxide BUN Creatinine Estimated GFR BUN/Creatinine Ratio Glucose Lactate Calcium Magnesium Total Creatine Kinase CK-MB (CK-2) CK-MB (CK-2) Rel Index Troponin I B-Natriuretic Peptide < 100 Procalcitonin Urine Color Urine Appearance Urine pH Ur Specific [place] Urine Protein Urine Glucose (UA) Urine Ketones Urine Occult Blood Urine Nitrate Urine Bilirubin Urine Urobilinogen Ur Leukocyte Esterase Urine RBC Urine WBC Urine Bacteria Ur Culture Indicated? Influenza A & B (PCR) Positive, type a A 12/24/18 12/24/18 12/24/18 23:15 23:15 23:15 WBC RBC Hgb Hct MCV MCH MCHC RDW Plt Count Neut % (Auto) Lymph % (Auto) [place] % (Auto) Eos % (Auto) Baso % (Auto) Neut # (Auto) Lymph # (Auto) [place] # (Auto) Eos # (Auto) Baso # (Auto) ABG pH ABG pCO2 ABG pO2 ABG HCO3 ABG Total CO2 ABG O2 Saturation ABG Base Excess FiO2 Sodium 137 Potassium 4.8 Chloride 102 Carbon Dioxide 24 BUN 31 H Creatinine 1.60 H Estimated GFR 43.7 L BUN/Creatinine Ratio 19.4 Glucose 141 H Lactate 1.2 Calcium 7.7 L Magnesium 2.4 H Total Creatine Kinase 805 H CK-MB (CK-2) 3.09 H CK-MB (CK-2) Rel Index 0.4 L Troponin I 0.025 B-Natriuretic Peptide Procalcitonin 0.21 Urine Color Urine Appearance Urine pH Ur Specific [place] Urine Protein Urine Glucose (UA) Urine Ketones Urine Occult Blood Urine Nitrate Urine Bilirubin Urine Urobilinogen Ur Leukocyte Esterase Urine RBC Urine WBC Urine Bacteria Ur Culture Indicated? Influenza A & B (PCR) 12/25/18 01:55 WBC RBC Hgb Hct MCV MCH MCHC RDW Plt Count Neut % (Auto) Lymph % (Auto) [place] % (Auto) Eos % (Auto) Baso % (Auto) Neut # (Auto) Lymph # (Auto) [place] # (Auto) Eos # (Auto) Baso # (Auto) ABG pH ABG pCO2 ABG pO2 ABG HCO3 ABG Total CO2 ABG O2 Saturation ABG Base Excess FiO2 Sodium Potassium Chloride Carbon Dioxide BUN Creatinine Estimated GFR BUN/Creatinine Ratio Glucose Lactate Calcium Magnesium Total Creatine Kinase CK-MB (CK-2) CK-MB (CK-2) Rel Index Troponin I B-Natriuretic Peptide Procalcitonin Urine Color Yellow Urine Appearance Clear Urine pH 6.0 Ur Specific [place] 1.015 Urine Protein Trace H Urine Glucose (UA) 3+ H Urine Ketones Trace H Urine Occult Blood Negative Urine Nitrate Negative Urine Bilirubin Negative Urine Urobilinogen 2.0 H Ur Leukocyte Esterase Negative Urine RBC None seen Urine WBC 0-1/hpf Urine Bacteria None seen Ur Culture Indicated? Cult not indicated Influenza A & B (PCR) PATIENT NAME: CRISTINA VITALE : 1955 EXAM DATE: 12/24/2018 21:[address] PALOMO KAN D.O. CC: NAI SEN MODALITY: CR PATIENT TYPE: ER CONTRAST MEDIA: STATION ID: [id number] FLUORO TIME: PROCEDURE: XR CHEST 2V INDICATIONS: cough, fever TECHNIQUE: 2 views of the chest were acquired. COMPARISON: [facility], CHEST 1 VIEW, 05/08/2013, 0:34. None. FINDINGS: Surgical changes and devices: Median sternotomy wires. Superior median sternotomy wire is fractured. Lungs and pleura: Lungs are clear. No pleural effusions or pneumothorax. Mediastinum: Mediastinal contours are normal. Heart size is normal. Bones and chest wall: No suspicious bony abnormalities. Soft tissues appear unremarkable. IMPRESSION: No acute cardiopulmonary disease process. Dictated by: Marguerite Rasmussen MD, PhD on 12/24/2018 at 22:12 Approved by: Marguerite Rasmussen MD, PhD on 12/24/2018 at 22:13 Assessment & Plan Assessment & Plan narrative: This 63-year-old male patient who was admitted to the hospital for treatment of exacerbation of COPD and influenza A. 1. COPD emphysema, acute on chronic -patient previously diagnosed with emphysema few pulmonary testing worsening over the last 3 days -increased cough and hypoxemia with adequate ventilation demonstrated on blood gas with a pCO2 of 38.4 and PO2 61 -chest x-ray finds no evidence of cardiopulmonary disease -patient with significant improvement with nebulizer treatments -will continue patient's Pulmicort inhaler and administer albuterol ipratropium nebulizer treatments every 4 hr as needed -patient remains seated initial dose of steroids in the ER will start prednisone 40 mg daily will taper dose depending on patient response 2. Influenza A, acute -patient is dehydrated will continue IV fluid at 75 cc/hour -will treat the patient with Tamiflu 75 mg twice daily 3. Diabetes type 2 insulin dependent, uncontrolled, chronic -patient with involving diabetic therapy taking metformin Humalog 50 50 and Soliqua. -sugars have been elevated per 's report and we further elevated with steroid therapy. -Accu-Cheks AC and HS -will continue metformin 750 mg daily, Soliqua 30 mg daily with sliding scale insulin 4. Cardiovascular disease, chronic -patient with chest tightness which she states is associated with breathing -12 lead EKG reveals normal sinus rhythm without ectopy ST or T-wave changes -the patient will be on telemetry and will continue aspirin 81 mg 5. Elevated serum creatinine, present on admission -multiple risk factors for kidney disease with hypertension and uncontrolled diabetes -likely chronic kidney disease [id number] -gently rehydrate the patient assess renal function on repeat chemistry 6. Hypertension, chronic -will continue lisinopril 20 mg and metoprolol 50 mg daily 7. Hyperlipidemia -will continue simvastatin 40 mg daily The patient is admitted inpatient due to the severity of presenting symptoms and potential for complications. The patient's expected length of stay is greater than 2 midnights Time Spent With Patient Time with patient: 25 - 35 minutes Scores GCS [place] coma scale eye opening: To sound Lisa coma scale verbal response: Orientated [place] coma scale motor response: Obey commands [place] coma scale total score: 14 Quality VTE Deep Vein Thrombosis/Pulmonary Embolism Present on Admission: No
[2018-12-25 05:34] VITALS: BP 107/65; PULSE 74; RESP 18; TEMP 36.4; O2SAT 94
[2018-12-25] MEDS: PANTOPRAZOLE 20 MG TABLET PO (05:35)
[2018-12-25 05:48] LABS: Add Manual Diff / Slide Review NO; Basophils Absolute Auto 0 /uL (0-100); Basophils Percent Auto 0.4 % (0-2); Eosinophils Absolute Auto 0 /uL (0-450); Hematocrit 41.5 % (41-53); Hemoglobin 13.3 g/dL (13.5-17.5); Lymphocytes Absolute Auto 500 /uL (1100-4500); Lymphocytes Percent Auto 6.1 % (25-40); Mean Corpuscular HGB Conc 31.9 % (30-36); Mean Corpuscular Hemoglobin 26.1 PG (26-34); Mean Corpuscular Volume 81.6 fL (80-100); Monocytes Absolute Auto 200 /uL (0-900); Monocytes Percent Auto 1.9 % (3-14); Neutrophils Absolute Auto 7500 /uL (1500-7000); Neutrophils Percent Auto 91.6 % (50-75); Platelet Count 337 X10^3/uL (150-400); Red Blood Cell Count 5.09 X10^6/uL (4.5-5.9); Red Cell Distribution Width 15.4 % (11.6-14.8); White Blood Cell Count 8.2 X10^3/uL (4.5-11.0)
[2018-12-25 06:01] LABS: Creatine Kinase 737 U/L (55-170)
[2018-12-25 06:09] VITALS: PULSE 74; RESP 24; O2SAT 94
[2018-12-25] MEDS: ALBUTEROL/IPRATROPIUM 3 ML AMPUL INH ×2 (06:09→10:39)
[2018-12-25 06:10] LABS: BUN Creatinine Ratio 23.3 (6-22); Blood Urea Nitrogen 35 mg/dL (9-20); Calcium 7.7 mg/dL (8.4-10.2); Carbon Dioxide 20 mmol/L (22-32); Chloride 103 mmol/L (98-107); Estimated Glomerular Filt Rate 47.1 mL/min (>60); Glucose 173 mg/dL (80-110); HEMOLYSIS < 15 (0-50); Potassium 5.1 mmol/L (3.4-5.1); Sodium 136 mmol/L (137-145)
[2018-12-25 06:13] LABS: Troponin I 0.027 ng/mL (0.01-0.034)
[2018-12-25 06:16] LABS: CKMB % Relative Index 0.4 % (1.5-5.0); Creatine Kinase MB 2.71 ng/mL (<2.37)
[2018-12-25] MEDS: ENOXAPARIN 40 MG/0.4 ML SYRINGE SUBCUT (08:43)
[2018-12-25] MEDS: GABAPENTIN 400 MG CAPSULE 800 MG PO (08:43)
[2018-12-25] MEDS: TAMSULOSIN 0.4 MG CAPSULE PO (08:44)
[2018-12-25] MEDS: predniSONE 20 MG TABLET 40 MG PO (08:44)
[2018-12-25] MEDS: ASPIRIN EC 81 MG TABLET PO (08:44)
[2018-12-25] MEDS: INSULIN ASPART 100 UNIT/ML INSULN PEN SUBCUT (08:45)
[2018-12-25 08:51] VITALS: BP 94/56; PULSE 79; RESP 24; TEMP 36.6; O2SAT 93
--- NOTE | 2018-12-25 09:21 | PC.NURSE ---
Pt to [facility] w/SBA, Pt had loose BM & voided dark richard urine.
[2018-12-25 10:40] VITALS: PULSE 68; RESP 18; O2SAT 94
[2018-12-25] MEDS: INSULIN GLARGINE LIXISENATIDE 30 EACH SUBCUT (10:46)
--- NOTE | 2018-12-25 10:47 | PM.DS.1 ---
History of Present Illness Date Patient Seen: 12/25/18 Chief complaint: cough, hard time breathing, fever Narrative: This is a 63-year-old male with a history of COPD, emphysema, insulin-dependent diabetes, coronary artery disease status post NH with a history of CABG x4, hypertension and hyperlipidemia presents to the ER with shortness of breath. At the time of encounter the patient is quite drowsy and will drift off to sleep during interview. Much of the information is obtained from the patient's at bedside. Patient has been having chronic cough for months however 3 days ago patient became much more symptomatic. He has been coughing more and complaining of wheezing with chest tightness and nausea has been progressive. He has complained of headaches body aches fevers and nausea. He has not taken anything for his symptoms. He reports nothing makes his symptoms better inactivity exist symptoms worse He presented today due to increased shortness of breath and tachypnea unresponsive to his usual inhaler therapy. The patient has had multiple hospitalizations for exacerbation of COPD requiring prednisone treatment but has never required intubation. Patient also has a history of diabetes that has been difficult control the patient's saying blood sugars been running in the 3-500 range in tele was recently started on Soliquia. Since starting on the new medication patient has been experiencing hypoglycemic episodes with blood sugars low as 52. The patient complains of headaches and abdominal pain associated with coughing. He denies head congestion or sore throat. Reports no palpitations. He denies constipation or diarrhea. He has a history of nocturia 3-4 times nightly and since starting tamsulosin will frequently sleeps through the night. The patient presented to the ER at 9:15 p.m. his vital signs were temperature of 99.0? degrees, blood pressure 125/64, heart rate 95, respiratory rate of 28 and oxygen saturation of 93% on room air. Lows monitored SpO2 was 91%. Patient did have an ABG drawn which found a pH of 7.38, pCO2 of 38.4, hypoxemia with a PO2 of 61, bicarb 23 and a base excess of -2. On laboratory analysis his CBC is within normal limits as are his electrolytes however he does have a BUN of 31 and creatinine 1.6 with a glucose of 141. He has an EGFR of 43.7. His magnesium was 2.4 and his procalcitonin is 0.21. Did test positive for flu A. He also had elevated total CK of 805, a CK-MB elevated at 3.09 with a relative index that was low at 0.4. His troponin was 0.025. Blood cultures were also drawn. Patient has received albuterol treatments x2 in addition to methylprednisolone 125 mg. He is also given initial dose of Tamiflu 75 mg. The patient is admitted for influenza A an exacerbation of COPD with associated hypoxemia. Discharge Providers Date of admission: 12/24/18 23:59 Primary care physician: Earle Go MD Consults: 12/24/18 22:54 Consult to Respiratory Therapy Evaluate & Treat Comment: Physician Instructions: Evaluate and treat 12/25/18 01:40 Consult to Dietitian, Adult Routine Comment: Reason For Exam: Diabetes, morbid obesity BMI 41.6 Consult to Discharge Planning Routine Comment: 12/25/18 01:41 Consult to Respiratory Therapy Evaluate & Treat Comment: Physician Instructions: Evaluate and treat Discharge provider: Maricruz Morocho MD Discharge Date: 12/25/18 Exam Vital Signs (past 8 hours): - 12/25/18 05:34 12/25/18 06:09 12/25/18 08:51 Temperature 97.6 F 97.8 F Pulse Rate 74 74 79 Respiratory Rate 18 24 24 Blood Pressure 107/65 94/56 L Pulse Oximetry 94 94 93 12/25/18 10:40 Temperature Pulse Rate 68 Respiratory Rate 18 Blood Pressure Pulse Oximetry 94 Fraction of Inspired Oxygen 21 Oxygen Delivery Method Room Air Oxygen Flow Rate 0 Objective Labs Result Diagrams: 12/25/18 05:22 12/25/18 05:22 Labs: Laboratory Results - last 24 hr 12/24/18 12/24/18 12/24/18 21:50 23:04 23:15 WBC 10.0 RBC 5.17 Hgb 13.5 Hct 42.0 MCV 81.2 MCH 26.1 MCHC 32.2 RDW 15.6 H Plt Count 331 Neut % (Auto) 69.2 Lymph % (Auto) 17.0 L Orange % (Auto) 12.9 Eos % (Auto) 0.4 L Baso % (Auto) 0.5 Neut # (Auto) 7000 Lymph # (Auto) 1700 Orange # (Auto) 1300 H Eos # (Auto) 0 Baso # (Auto) 100 ABG pH 7.38 ABG pCO2 38.4 ABG pO2 61 L ABG HCO3 23 ABG Total CO2 24 ABG O2 Saturation 91 L ABG Base Excess -2.0 FiO2 0.21 Sodium Potassium Chloride Carbon Dioxide BUN Creatinine Estimated GFR BUN/Creatinine Ratio Glucose Lactate Calcium Magnesium Total Creatine Kinase CK-MB (CK-2) CK-MB (CK-2) Rel Index Troponin I B-Natriuretic Peptide < 100 Procalcitonin Urine Color Urine Appearance Urine pH Ur Specific Matthews Urine Protein Urine Glucose (UA) Urine Ketones Urine Occult Blood Urine Nitrate Urine Bilirubin Urine Urobilinogen Ur Leukocyte Esterase Urine RBC Urine WBC Urine Bacteria Ur Culture Indicated? Influenza A & B (PCR) Positive, type a A 12/24/18 12/24/18 12/24/18 23:15 23:15 23:15 WBC RBC Hgb Hct MCV MCH MCHC RDW Plt Count Neut % (Auto) Lymph % (Auto) Orange % (Auto) Eos % (Auto) Baso % (Auto) Neut # (Auto) Lymph # (Auto) Orange # (Auto) Eos # (Auto) Baso # (Auto) ABG pH ABG pCO2 ABG pO2 ABG HCO3 ABG Total CO2 ABG O2 Saturation ABG Base Excess FiO2 Sodium 137 Potassium 4.8 Chloride 102 Carbon Dioxide 24 BUN 31 H Creatinine 1.60 H Estimated GFR 43.7 L BUN/Creatinine Ratio 19.4 Glucose 141 H Lactate 1.2 Calcium 7.7 L Magnesium 2.4 H Total Creatine Kinase 805 H CK-MB (CK-2) 3.09 H CK-MB (CK-2) Rel Index 0.4 L Troponin I 0.025 B-Natriuretic Peptide Procalcitonin 0.21 Urine Color Urine Appearance Urine pH Ur Specific Matthews Urine Protein Urine Glucose (UA) Urine Ketones Urine Occult Blood Urine Nitrate Urine Bilirubin Urine Urobilinogen Ur Leukocyte Esterase Urine RBC Urine WBC Urine Bacteria Ur Culture Indicated? Influenza A & B (PCR) 12/25/18 12/25/18 12/25/18 01:55 05:22 05:22 WBC 8.2 RBC 5.09 Hgb 13.3 L Hct 41.5 MCV 81.6 MCH 26.1 MCHC 31.9 RDW 15.4 H Plt Count 337 Neut % (Auto) 91.6 H D Lymph % (Auto) 6.1 L Orange % (Auto) 1.9 L Eos % (Auto) 0.0 L Baso % (Auto) 0.4 Neut # (Auto) 7500 H Lymph # (Auto) 500 L Orange # (Auto) 200 Eos # (Auto) 0 Baso # (Auto) 0 ABG pH ABG pCO2 ABG pO2 ABG HCO3 ABG Total CO2 ABG O2 Saturation ABG Base Excess FiO2 Sodium 136 L Potassium 5.1 Chloride 103 Carbon Dioxide 20 L BUN 35 H Creatinine 1.50 H Estimated GFR 47.1 L BUN/Creatinine Ratio 23.3 H Glucose 173 H Lactate Calcium 7.7 L Magnesium Total Creatine Kinase CK-MB (CK-2) CK-MB (CK-2) Rel Index Troponin I B-Natriuretic Peptide Procalcitonin Urine Color Yellow Urine Appearance Clear Urine pH 6.0 Ur Specific Matthews 1.015 Urine Protein Trace H Urine Glucose (UA) 3+ H Urine Ketones Trace H Urine Occult Blood Negative Urine Nitrate Negative Urine Bilirubin Negative Urine Urobilinogen 2.0 H Ur Leukocyte Esterase Negative Urine RBC None seen Urine WBC 0-1/hpf Urine Bacteria None seen Ur Culture Indicated? Cult not indicated Influenza A & B (PCR) 12/25/18 05:22 WBC RBC Hgb Hct MCV MCH MCHC RDW Plt Count Neut % (Auto) Lymph % (Auto) Orange % (Auto) Eos % (Auto) Baso % (Auto) Neut # (Auto) Lymph # (Auto) Orange # (Auto) Eos # (Auto) Baso # (Auto) ABG pH ABG pCO2 ABG pO2 ABG HCO3 ABG Total CO2 ABG O2 Saturation ABG Base Excess FiO2 Sodium Potassium Chloride Carbon Dioxide BUN Creatinine Estimated GFR BUN/Creatinine Ratio Glucose Lactate Calcium Magnesium Total Creatine Kinase 737 H CK-MB (CK-2) 2.71 H CK-MB (CK-2) Rel Index 0.4 L Troponin I 0.027 B-Natriuretic Peptide Procalcitonin Urine Color Urine Appearance Urine pH Ur Specific Matthews Urine Protein Urine Glucose (UA) Urine Ketones Urine Occult Blood Urine Nitrate Urine Bilirubin Urine Urobilinogen Ur Leukocyte Esterase Urine RBC Urine WBC Urine Bacteria Ur Culture Indicated? Influenza A & B (PCR) Discharge Plan Discharge Plan Patient Disposition: Home Discharge Med Rec/Prescriptions Prescriptions: New prednisone 20 mg Tablet 40 mg PO DAILY Qty: 4 RF: 0 oseltamivir [Tamiflu] 75 mg Capsule 75 mg PO BID 4 Days Qty: 8 RF: 0 Continued cetirizine 10 mg Tablet 10 mg PO DAILY RF: 0 metoprolol succinate [Toprol XL] 50 mg Tablet Extended Release 24 Hr 50 mg PO DAILY RF: 0 ranitidine HCl [Zantac] 300 mg Tablet 300 mg PO BEDTIME RF: 0 lisinopril 20 mg Tablet 20 mg PO DAILY RF: 0 fexofenadine [Allergy Relief (fexofenadine)] 180 mg Tablet 180 mg PO DAILY RF: 0 aspirin 81 mg Tablet,Delayed Release (Dr/Ec) 81 mg PO DAILY RF: 0 simvastatin [Zocor] 40 mg Tablet 40 mg PO QPM RF: 0 tamsulosin [Flomax] 0.4 mg Capsule 0.4 mg PO DAILY RF: 0 gabapentin 800 mg Tablet 800 mg PO TID RF: 0 ferrous sulfate 325 mg (65 mg iron) Tablet 325 mg PO DAILY RF: 0 omeprazole 20 mg Capsule,Delayed Release(Dr/Ec) 20 mg PO DAILY RF: 0 naproxen [Naprosyn] 500 mg Tablet 500 mg PO BID RF: 0 metformin [Glucophage XR] 750 mg Tablet Extended Release 24 Hr 750 mg PO QPM RF: 0 Pulmicort Flexhaler 180 mcg/actuation Aerosol Powdr Breath Activated 2 inh INHALATION Q12H RF: 0 Combivent Respimat 20-100 mcg/actuation Mist 1 puff INHALATION 6XD RF: 0 Soliqua 100/33 100 unit-33 mcg/mL Insulin Pen 30 units subcut QAM RF: 0 ProAir HFA inhaler 1 puff Inhalation Q4-6H PRN (Reason: Wheezing) RF: 0 Follow up/Referrals: Earle Go MD [Primary Care Provider] - Provider Discharge Instructions Diet: Low-sodium Activity: as tolerated Oxygen: not indicated Skin/Wound/Dressing Care Report to your healthcare provider any signs of infection, such as:: chills, fever Visit Report/Discharge Packet Instructions: Complications of Diabetes (Alternative Therapy), Type 2 Diabetes, Type 1 Diabetes, DI for Influenza -- Adult Visit Report Forms: Stroke Signs & Symptoms Discharge Data Primary Care Provider: Earle Go Attending Provider: Blas Hernandez Admit Date/Time: 12/24/18 23:59 Discharges patient from system. Discharge Date/Time: 12/25/18 12:15 Quality VTE Deep Vein Thrombosis/Pulmonary Embolism Present on Admission: No
--- NOTE | 2018-12-25 12:14 | CM.DPC ---
Discharge Planning/Care Management DCP: continued: case received, EMR reviewed and notified of a d/c order for home. Went to room now to check in with pt and his Earline, at bedside. Introduced self and role. Pt is a 63 year old male who admitted to care of hospitalist team last night: 23:59. Payer: Medicaid PCP: Earle Go. Droplet precautions: noted. Pt with dx Influenza A in setting of COPD (per Dr. Morocho's report in Team Rounds Pt was found in process of getting dressed. Coughing frequently. His Earline said that they both were comfortable with the d/c order for today. RN Kasey confirms same and says all the d/c paperwork has been completed. P: home as per above...stay < 24 hours. CM Discharge Assessment Start: 12/25/18 12:12 Freq: Status: Active Protocol: Document 12/25/18 12:12 ITV (Rec: 12/25/18 12:14 ITV [id number]) Discharge Planning Assessment Advance Directives? No Advance Directives on File No History Provided By Patient Family Member Medical Record Prior Living Arrangements Apartment/Condo Household Members spouse Review Status In Process Next Review Type Continued Stay Review
== END 2018-12-25 12:15 | disposition home or self-care (01) ==
LOC: ED 23:35 → AC 12-25 10:20
PROVIDERS: Admitting Provider Nurse Practitioner Adult Health; Emergency Provider Emergency Medicine; PCP Family Medicine; Visit Provider Nurse Practitioner Adult Health
DX: J44.1 Chronic obstructive pulmonary disease with (acute) exacerbation (principal); R05 Cough; J11.1 Influenza due to unidentified influenza virus with other respiratory manifestations; E66.9 Obesity, unspecified; Z68.38 Body mass index [BMI] 38.0-38.9, adult; E86.0 Dehydration; E11.65 Type 2 diabetes mellitus with hyperglycemia; Z87.891 Personal history of nicotine dependence; Z79.4 Long term (current) use of insulin; I25.10 Atherosclerotic heart disease of native coronary artery without angina pectoris; I10 Essential (primary) hypertension; E78.5 Hyperlipidemia, unspecified; R94.4 Abnormal results of kidney function studies
CPT/HCPCS: 36415; 36591; 36600; 71046; 80048; 81001; 82550; 82553; 82805; 82962; 83605; 83735; 83880; 84145; 84484; 85025; 87040; 87400; 93005; 93010; 94640; 94760; 94762; 96374; 99283; 99285; G0378; J1650; J2930

== ENCOUNTER 2019-08-24 08:22 | Emergency (ER) | payer MEDICAID, SELFPAY ==
[2019-08-24 08:31] VITALS: BP 159/87; PULSE 88; RESP 15; TEMP 36.7; O2SAT 96; BMI 37.5
--- NOTE | 2019-08-24 08:31 | ED_ITS ---
HPI - Wound/Laceration General Chief Complaint: Wound/Laceration Stated Complaint: cut corner of pinky finger,r hand Time Seen by Provider: 08/24/19 08:24 Source: patient Mode of arrival: Ambulatory Limitations: no limitations History of Present Illness HPI narrative: 63-year-old male here for evaluation of a cut to the little finger on his right hand. Patient was using a slicer at home when he cut his hand. Does not know when his last tetanus shot was. He covered it with a rash acting came to the emergency department. He states that his ?burning? Related Data Home Medications Medication Instructions Recorded Confirmed Combivent Respimat 1 puff INHALATION 6XD 12/25/18 12/25/18 ProAir HFA 1 puff INHALATION Q4-6H PRN 12/25/18 12/25/18 Pulmicort Flexhaler 2 inh INHALATION Q12H 12/25/18 12/25/18 Soliqua 100/33 30 units SUBCUT QAM 12/25/18 12/25/18 aspirin 81 mg PO DAILY 12/25/18 12/25/18 cetirizine 10 mg PO DAILY 12/25/18 12/25/18 ferrous sulfate 325 mg PO DAILY 12/25/18 12/25/18 fexofenadine [Allergy Relief 180 mg PO DAILY 12/25/18 12/25/18 (fexofenadine)] gabapentin 800 mg PO TID 12/25/18 12/25/18 lisinopril 20 mg PO DAILY 12/25/18 12/25/18 metformin [Glucophage XR] 750 mg PO QPM 12/25/18 12/25/18 metoprolol succinate [Toprol XL] 50 mg PO DAILY 12/25/18 12/25/18 naproxen [Naprosyn] 500 mg PO BID 12/25/18 12/25/18 omeprazole 20 mg PO DAILY 12/25/18 12/25/18 ranitidine HCl [Zantac] 300 mg PO BEDTIME 12/25/18 12/25/18 simvastatin [Zocor] 40 mg PO QPM 12/25/18 12/25/18 tamsulosin [Flomax] 0.4 mg PO DAILY 12/25/18 12/25/18 Previous Rx's Medication Instructions Recorded prednisone 40 mg PO DAILY #4 tab 12/25/18 Allergies Allergy/AdvReac Type Severity Reaction Status Date / Time No Known Drug Allergies Allergy Verified 08/24/19 08:31 Review of Systems Musculoskeletal Musculoskeletal: Denies myalgias and Denies arthralgias Integumentary/Breasts Comments: Cut to his right little finger Neurologic Comments: Burning to the tip of his right little finger Hematologic/Lymphatic Hematologic/Lymphatic: Denies easy bleeding and Denies easy bruising Patient History Medical History COPD (chronic obstructive pulmonary disease) with emphysema (Acute) Coronary artery disease (Acute) Diabetes mellitus (Acute) Hypertension (Acute) Myocardial infarction (Acute) Surgical History History of cholecystectomy (Acute) Hx of four vessel coronary artery bypass graft (Acute) Family History Father No problems noted. Mother Hypertension Brother No problems noted. Sister No problems noted. Social History household members: spouse Smoking Status: Former smoker alcohol intake: former alcohol intake frequency: holidays/special occasions only Substance Use Type: does not use Exam Initial Vital Signs Initial Vital Signs: Vital Signs Temperature 98.1 F 08/24/19 08:31 Pulse Rate 88 08/24/19 08:31 Respiratory Rate 15 08/24/19 08:31 Blood Pressure 159/87 H 08/24/19 08:31 Pulse Oximetry 96 08/24/19 08:31 Const General: cooperative, healthy appearing and comfortable [facility] Head: normal to inspection and normocephalic Resp Effort & Inspection: normal respiratory effort Cardio Pulses: radial pulses present on the right Skin Other: Patient with a 1 cm x 1 cm avulsion of the ulnar aspect of the left little finger. It does involve the pad of his finger and also involves the outside of the nail. It is bleeding. There is no underlying bone involvement. Neuro Cognition: normal cognition Speech: speech normal Sensory Exam: no sensory deficits noted Extrem Other: Superficial avulsion to the ulnar aspect of the right little finger. Procedures Nerve Block Nerve Block 1: Time out performed: No Local Anesthetic: lidocaine 1% Amount of anesthesia used (mL): 4 Side: right Nerve Blocks: digital Procedure Successful: Yes Patient Tolerated Procedure: Well and No complications Complications: none Course Orders Ordered: Discontinued Medications Diphtheria/Tetanus/Acell Pertussis (Adacel) 0.5 ml IM .ONCE ONE Stop: 08/24/19 08:29 Last Admin: 08/24/19 08:34 Dose: 0.5 ml Documented by: HUGO Lidocaine HCl (Xylocaine 1% (Pf)) 4 ml INJ NOW ONE Stop: 08/24/19 08:31 Last Admin: 08/24/19 08:36 Dose: 4 ml Documented by: HUGO Vital Signs Vital signs: Vital Signs - 8 hr 08/24/19 08:31 Temperature 98.1 F Pulse Rate 88 Respiratory Rate 15 Blood Pressure 159/87 H Pulse Oximetry 96 MDM - Wound/Laceration MDM Narrative Medical decision making narrative: Patient's tetanus shot was updated. He has a superficial ulnar aspect finger tip avulsion. It does not expose the bone. It did injure the distal portion of his nail but the nail bed looks intact. Informed the patient that he potentially could have a deformed finger that his nail may be deformed after this. Unfortunately the wound is not amenable to suturing here in the emergency department. Hemostasis was obtained with Gelfoam. Was then covered with tube gauze. This was done after he was washed. Patient was given care instructions and return precautions. No indication for x-rays. He expressed understanding and agreement plan. Discharge Plan Departure Patient Disposition: Home Clinical Impression: Avulsion of skin of finger Qualifiers: Encounter type: initial encounter Qualified Code(s): S61.209A - Unspecified open wound of unspecified finger without damage to nail, initial encounter Instructions: DI for Avulsion Laceration (Not Requiring Sutures) Activity Restrictions/Additional Instructions: Keep the bandage that we placed on your finger in place for the next 24 hours. After that you can take it off and replace it. If the substance we used to stop the bleeding remains in place it would be aguillon to keep that on for an additional 24 hours. If it comes off that is okay. Contact your primary provider for follow-up. Your tetanus shot was updated today. Return to the emergency department for any new or worsening symptoms Prescriptions: No Action cetirizine 10 mg Tablet 10 mg PO DAILY RF: 0 metoprolol succinate [Toprol XL] 50 mg Tablet Extended Release 24 Hr 50 mg PO DAILY RF: 0 ranitidine HCl [Zantac] 300 mg Tablet 300 mg PO BEDTIME RF: 0 lisinopril 20 mg Tablet 20 mg PO DAILY RF: 0 fexofenadine [Allergy Relief (fexofenadine)] 180 mg Tablet 180 mg PO DAILY RF: 0 aspirin 81 mg Tablet,Delayed Release (Dr/Ec) 81 mg PO DAILY RF: 0 simvastatin [Zocor] 40 mg Tablet 40 mg PO QPM RF: 0 tamsulosin [Flomax] 0.4 mg Capsule 0.4 mg PO DAILY RF: 0 gabapentin 800 mg Tablet 800 mg PO TID RF: 0 ferrous sulfate 325 mg (65 mg iron) Tablet 325 mg PO DAILY RF: 0 omeprazole 20 mg Capsule,Delayed Release(Dr/Ec) 20 mg PO DAILY RF: 0 naproxen [Naprosyn] 500 mg Tablet 500 mg PO BID RF: 0 metformin [Glucophage XR] 750 mg Tablet Extended Release 24 Hr 750 mg PO QPM RF: 0 Pulmicort Flexhaler 180 mcg/actuation Aerosol Powdr Breath Activated 2 inh INHALATION Q12H RF: 0 Combivent Respimat 20-100 mcg/actuation Mist 1 puff INHALATION 6XD RF: 0 Soliqua 100/33 100 unit-33 mcg/mL Insulin Pen 30 units subcut QAM RF: 0 ProAir HFA inhaler 1 puff Inhalation Q4-6H PRN (Reason: Wheezing) RF: 0 prednisone 20 mg Tablet 40 mg PO DAILY Qty: 4 RF: 0
[2019-08-24] MEDS: TET,DIPH,PERTUSS(ACELL),VAC/PF 0.5 ML SYRINGE IM (08:34)
[2019-08-24] MEDS: LIDOCAINE 1% (PF) 4 ML INJ (08:36)
--- NOTE | 2019-08-24 08:47 | PC.NURSE ---
pt making breakfast, potatoe, using mandalin, obtained avultion right 5th digit.
--- NOTE | 2019-08-24 09:29 | PC.NURSE ---
dr meneses cleaned and bandaged wound. wound care instructions reviewed, pt verablized understanding.
== END 2019-08-24 09:59 | disposition home or self-care (01) ==
PROVIDERS: Emergency Provider Emergency Medicine
DX: S61.209A Unspecified open wound of unspecified finger without damage to nail, initial encounter (principal); Z23 Encounter for immunization
CPT/HCPCS: 64450; 90471; 99283; 90715

== ENCOUNTER 2020-03-15 10:34 | Emergency (ER) | payer MEDICARE, SELFPAY ==
[2020-03-15] VITALS (8 sets, daily range): BP systolic 89–130; BP diastolic 52–78; PULSE 77–92; RESP 12–24; TEMP 36.9; O2SAT 94–98; BMI 38.0
--- NOTE | 2020-03-15 10:39 | DI.RAD.S_ITS ---
PROCEDURE: XR CHEST 1V INDICATIONS: chest pain TECHNIQUE: One view of the chest was acquired. COMPARISON: [facility], CT, CHEST/ABD/PEL WITH CONTRAST, 05/08/2013, 1:48. [facility], CR, CHEST 1 VIEW, 05/08/2013, 0:34. [facility], CR, XR CHEST 2V, 12/24/2018, 21:55. FINDINGS: Surgical changes and devices: Post CABG changes are seen. Lungs and pleura: Lungs are clear. No pleural effusions or pneumothorax. Mediastinum: Mediastinal contours appear normal. Heart size is normal. Bones and chest wall: No suspicious bony lesions. Age-appropriate bony degenerative changes are seen. Overlying soft tissues appear unremarkable. IMPRESSION: Unremarkable portable chest for age. Postoperative and degenerative changes are seen. Dictated by: Cecilio Olsen M.D. on 03/15/2020 at 9:59 Approved by: Cecilio Olsen M.D. on 03/15/2020 at 10:00
[2020-03-15 11:10] LABS: PTT Partial Thromboplastin Tim 36 SECONDS (26.4-36.2)
[2020-03-15 11:12] LABS: Alanine Aminotransferase 27 IU/L (<50); Albumin 4.1 g/dL (3.5-5.0); Albumin Globulin Ratio 1.2 (1.0-2.8); Alkaline Phosphatase 79 U/L (38-126); Aspartate Aminotransferase 27 IU/L (17-59); BUN Creatinine Ratio 20.4 (6-22); Bilirubin Total 0.5 mg/dL (0.2-1.3); Blood Urea Nitrogen 39 mg/dL (9-20); Calcium 8.7 mg/dL (8.4-10.2); Carbon Dioxide 19 mmol/L (22-32); Chloride 105 mmol/L (98-107); Creatine Kinase 104 U/L (55-170); Estimated Glomerular Filt Rate 35.5 mL/min (>60); Globulin 3.5 g/dL (1.7-4.1); Glucose 209 mg/dL (80-110); HEMOLYSIS < 15 (0-50); Lipase 218 U/L (23-300); Potassium 4.2 mmol/L (3.4-5.1); Sodium 137 mmol/L (137-145); Total Protein 7.6 g/dL (6.3-8.2)
--- NOTE | 2020-03-15 11:22 | PC.NURSE ---
Patient states that he thinks he had a mini stroke last week. He is a type two diabetic and his claims that he is not in control of it. His BG at home this morning was 37 and upon arrival to the ED it was 207. He reports generalized weakness all over and has left sided ataxia in his right hand while tracking fingertip to fingertip that he states started with his s/sx on last Wednesday.
[2020-03-15 11:24] LABS: Troponin I < 0.012 ng/mL (0.01-0.034)
[2020-03-15 11:27] LABS: CKMB % Relative Index 1.2 % (1.5-5.0); Creatine Kinase MB 1.26 ng/mL (<2.37)
[2020-03-15 11:32] LABS: Add Manual Diff / Slide Review NO; Basophils Absolute Auto 100 /uL (0-100); Basophils Percent Auto 0.7 % (0-2); Eosinophils Absolute Auto 100 /uL (0-450); Eosinophils Percent Auto 0.8 % (2-4); Hematocrit 42.4 % (41-53); Hemoglobin 14.3 g/dL (13.5-17.5); Lymphocytes Absolute Auto 1500 /uL (1100-4500); Lymphocytes Percent Auto 15.8 % (25-40); Mean Corpuscular HGB Conc 33.7 % (30-36); Mean Corpuscular Hemoglobin 28.1 PG (26-34); Mean Corpuscular Volume 83.3 fL (80-100); Monocytes Absolute Auto 800 /uL (0-900); Monocytes Percent Auto 8.1 % (3-14); Neutrophils Absolute Auto 6900 /uL (1500-7000); Neutrophils Percent Auto 74.6 % (50-75); Platelet Count 408 X10^3/uL (150-400); Red Blood Cell Count 5.08 X10^6/uL (4.5-5.9); Red Cell Distribution Width 15.1 % (11.6-14.8); White Blood Cell Count 9.3 X10^3/uL (4.5-11.0)
[2020-03-15] MEDS: SODIUM CHLORIDE 0.9% 500 ML 1000 ML IV (11:55)
--- NOTE | 2020-03-15 11:55 | DI.CT.S_ITS ---
PROCEDURE: CT HEAD/BRAIN WO CON INDICATIONS: generalized weankess, headaches TECHNIQUE: Noncontrast 4.5 mm thick angled axial sections acquired from the foramen magnum to the vertex, with coronal and sagittal reformats. For radiation dose reduction, the following was used: automated exposure control, adjustment of mA and/or kV according to patient size. COMPARISON: [facility], CT, CT BRAIN WO CON, 10/11/2015, 15:54. FINDINGS: Image quality: Excellent. CSF spaces: Basal cisterns are patent. No extra-axial fluid collections. Ventricles are normal in size and shape. Brain: No midline shift. No intracranial masses or hemorrhage. Lou-white matter interface is normal. Skull and face: Calvarium and visualized facial bones are intact, without suspicious lesions. Sinuses: Visualized sinuses and mastoids are clear. IMPRESSION: Negative head CT. No acute intracranial hemorrhage. Dictated by: Julio Cesar Parker M.D. on 03/15/2020 at 11:08 Approved by: Julio Cesar Parker M.D. on 03/15/2020 at 11:18
--- NOTE | 2020-03-15 12:14 | ED.GENADULT ---
HPI - General Adult <MATA Arriaga - Last Filed: 03/15/20 22:09> General Chief complaint: Hypertension Stated complaint: high blood pressure, thinks he had mini strokes Time Seen by Provider: 03/15/20 11:16 Source: patient Mode of arrival: Ambulatory Limitations: no limitations History of Present Illness HPI narrative: This is a 64 year male, former smoker, who has significant medical history with diabetes using insulin and oral medication, CAD, hypertension, quadruple bypass 3 years ago who presents to ED with his daughter with chief complain of generalized weakness which started 11 days ago while he was mowing the lawn. Reports he felt weak all over his body without speech difficulty, balance difficulty, or vision change. He could not walk and required assistance for couple of days. Patient did not check his blood sugar or blood pressure at that time. Patient also reports headache in posterior head feeling pressure and rates as 6 to 10/10 pain. Had taken Naprosyn yesterday which helped with his headache. Patient takes baby aspirin daily. Patient denies short of breath, recent chest pain, or urinary symptoms such as urgency, frequency, dysuria. Patient denies fever, chills, cough, other recent illness. Patient's daughter states his primary care physician mentioned of concerns with his kidney function but was not told he has a kidney failure. Daughter states father has decreased appetite and patient reports average eating 1 meal a day recently. Daughter also states noticed patient's blood sugar and blood pressure has been up and down. This morning patient's blood glucose is in mid 30s and ate which took a while to correct the hypoglycemia. Then, patient had taken 40 units of Humalog which he takes it as needed. Patient's daughter states at home right arm blood pressure was low and left arm blood pressure was much higher. Patient's other diabetes medications are metformin 750 mg, Jardiance 25 mg, Soliqua 60 units, and Humalog 40 Units (titrate dose). Patient states his last hemoglobin A1c was little over 8 about a month ago. He sees his primary care physician (unable to recall the name) at [facility] every 3 months. Patient was suggested to come in to ED for an evaluation per [facility]. Related Data Home Medications Medication Instructions Recorded Confirmed Combivent Respimat 1 puff INHALATION 6XD 12/25/18 12/25/18 ProAir HFA 1 puff INHALATION Q4-6H PRN 12/25/18 12/25/18 Pulmicort Flexhaler 2 inh INHALATION Q12H 12/25/18 12/25/18 Soliqua 100/33 60 units SUBCUT QAM 12/25/18 12/25/18 aspirin 81 mg PO DAILY 12/25/18 12/25/18 cetirizine 10 mg PO DAILY 12/25/18 12/25/18 ferrous sulfate 325 mg PO DAILY 12/25/18 12/25/18 fexofenadine [Allergy Relief 180 mg PO DAILY 12/25/18 12/25/18 (fexofenadine)] gabapentin 800 mg PO TID 12/25/18 12/25/18 lisinopril 20 mg PO DAILY 12/25/18 12/25/18 metformin [Glucophage XR] 750 mg PO QPM 12/25/18 12/25/18 metoprolol succinate [Toprol XL] 50 mg PO DAILY 12/25/18 12/25/18 naproxen [Naprosyn] 500 mg PO BID 12/25/18 12/25/18 omeprazole 20 mg PO DAILY 12/25/18 12/25/18 ranitidine HCl [Zantac] 300 mg PO BEDTIME 12/25/18 12/25/18 simvastatin [Zocor] 40 mg PO QPM 12/25/18 12/25/18 tamsulosin [Flomax] 0.4 mg PO DAILY 12/25/18 12/25/18 Jardiance 25 mg PO DAILY 03/15/20 03/15/20 insulin lispro [Humalog U-100 sliding scale dose 03/15/20 Insulin] Previous Rx's Medication Instructions Recorded prednisone 40 mg PO DAILY #4 tab 12/25/18 Allergies Allergy/AdvReac Type Severity Reaction Status Date / Time No Known Drug Allergies Allergy Verified 03/15/20 10:41 Review of Systems <MATA Arriaga - Last Filed: 03/15/20 22:09> Review of Systems Narrative: General: Denies fever, chills, (+) fatigue, malaise, sweats. HEENT: Denies sinus pain, ear pain, sore throat, difficulty swallowing, dizziness. Respiratory: Denies dyspnea, cough, wheezing, hemoptysis, sputum. Cardiovascular: Denies chest pain, palpitations, orthopnea, edema. Gastrointestinal: Denies nausea, vomiting, abdominal pain, diarrhea, constipation, melena, (+) decreased appetitie. : Denies dysuria, frequency, incontinence, hematuria, urinary retention. Musculoskeletal: Denies joint pain or bony pain. Skin: Denies rash, skin lesions, or other. Neurologic: Denies (+) generalized weakness, headache, numbness, change in speech, confusion, seizures, incoordination. Psychiatric: No concerning psychosocial issues. 12-point review of systems is negative except for those stated above. Patient History <MATA Arriaga - Last Filed: 03/15/20 22:09> Medical History COPD (chronic obstructive pulmonary disease) with emphysema (Acute) Coronary artery disease (Acute) Diabetes mellitus (Acute) Hypertension (Acute) Myocardial infarction (Acute) Surgical History History of cholecystectomy (Acute) Hx of four vessel coronary artery bypass graft (Acute) Family History Father No problems noted. Mother Hypertension Brother No problems noted. Sister No problems noted. Social History household members: spouse Smoking Status: Former smoker alcohol intake: former Smoking Status: Former smoker alcohol intake frequency: holidays/special occasions only Substance Use Type: does not use Exam <MATA Arriaga - Last Filed: 03/15/20 22:09> Narrative Exam Narrative: GEN: Alert, oriented x 3, well appearing and nourished, and in no acute distress. Head: Normal cephalic, atraumatic. No scalp or temporal tenderness, palpable mass or rash. EYES: Pupils are equal, round, and reactive to light and accommodation. Extraocular muscles are intact bilaterally. There is no subconjunctival hemorrhage, exudate and sclera non-icteric. ENT: Hearing difficulty in right ear. Nose without bleeding, purulent discharge or deviation. Facial sinuses nontender to palpate. Mucous membrane moist, no mucosal lesion. Throat without erythema, tonsillar hypertrophy or exudate. Uvula in midline, airway patent. Neck: Trachea in midline. No JVD, non-tender without lymphadenopathy. No masses or thyroid megaly. Supple, non-tender and no meningeal signs. CARDIAC: Normal regular rate and rhythm without murmurs, gallops, or rubs. No chest wall tenderness. No peripheral edema, cyanosis or pallor. Capillary refill is less than 2 seconds. RESPIRATORY: Mild wheezing to auscultate without rales, or rhonchi. No stridor, respiratory distress, increase work of breathing, or accessary muscle used. ABD: Abdomen soft, nontender and non-distended. No guarding or rebound tenderness to palpate. Bowel sounds are normal in all 4 quadrants. There is no palpable masses or organomegaly. EXT: Full painless ROM of all extremities with no loss of sensation, strength, effusion or edema. SKIN: Warm, dry, normal color for patient. No erythema, lesions or rash over visible areas. BACK: Nontender without deformity or crepitance. No flank tenderness. NEUROLOGICAL: Alert and oriented to place, time and person. Sensation, motor function intact bilaterally and speech clear. No facial droops, dysphasia, focal deficit appreciated. PSYCHIATRIC: Good judgement and reason, without hallucinations, abnormal affect or abnormal behaviors during the examination. Patient is not suicidal. Initial Vital Signs Initial Vital Signs: Vital Signs Temperature 98.5 F 03/15/20 10:35 Pulse Rate 92 H 03/15/20 10:35 Respiratory Rate 03/15/20 10:35 Blood Pressure 130/63 03/15/20 10:35 Pulse Oximetry 97 03/15/20 10:35 Neuro Cranial Nerves: PERRL, EOM intact bilaterally, facial strength normal, tongue midline, able to elevate shoulders bilaterally and symmetric palate elevation Cognition: normal cognition Motor: muscle tone normal throughout Sensory Exam: no sensory deficits noted <Juliana Felton, DO - Last Filed: 03/16/20 07:37> Initial Vital Signs Initial Vital Signs: Vital Signs Temperature 98.5 F 03/15/20 10:35 Pulse Rate 92 H 03/15/20 10:35 Respiratory Rate 15 03/15/20 10:35 Blood Pressure 130/63 03/15/20 10:35 Pulse Oximetry 97 03/15/20 10:35 Scores <[facility]SOR[facility]A [facility] Last Filed: 03/15/20 22:09> GCS Lisa coma scale eye opening: Spontaneous Lisa coma scale verbal response: Orientated Lisa coma scale motor response: Obey commands Meade coma scale total score: 15 NIH Stroke Scale Level of Conciousness: Alert, keenly responsive Ask month/age: Answers both questions correctly. Open/close eyes, close hand: Performs both tasks correctly Best gaze horizontal: Normal Visual qureshi: No visual loss Facial palsy: Normal symetrical movement Left arm drift: No drift for full 10 sec Right arm drift: No drift for full 10 sec Left leg drift: No drift for full 10 sec Right leg drift: No drift for full 10 sec Limb ataxia: Absent Sensory on face/arms/legs: Normal, no sensory loss Best language: No aphasia, normal Dysarthria: Normal Extinction or inattention: No abnormality Total NIH Stroke scale score: 0 Course <Boy RtohmanSORAYA [facility] Last Filed: 03/15/20 22:09> Orders Ordered: Discontinued Medications Acetaminophen (Tylenol) 650 mg PO NOW ONE Stop: 03/15/20 14:48 Last Admin: 03/15/20 14:50 Dose: 650 mg Documented by: HENRRY Albuterol (Ventolin) 2.5 mg INH NOW ONE Stop: 03/15/20 12:38 Last Admin: 03/15/20 12:59 Dose: 2.5 mg Documented by: JULIANN Sodium Chloride (Normal Saline 0.9%) 500 mls @ 1,000 mls/hr IV BOLUS ONE Stop: 03/15/20 12:13 Last Infusion: 03/15/20 12:24 Dose: 0 mls/hr Documented by: Admin: 03/15/20 11:55 Dose: 1,000 mls/hr Documented by: HENRRY Sodium Chloride (Normal Saline 0.9%) 1,000 mls @ 125 mls/hr IV CONT TRICIA Last Infusion: 03/15/20 23:04 Dose: 125 mls/hr Documented by: Infusion: 03/15/20 15:01 Dose: 125 mls/hr Documented by: Admin: 03/15/20 12:53 Dose: 125 mls/hr Documented by: HENRRY Vital Signs Vital signs: Vital Signs - 8 hr 03/15/20 14:13 03/15/20 14:22 03/15/20 14:23 Pulse Rate 79 88 88 Respiratory Rate 16 24 24 Blood Pressure Blood Pressure [Left Arm] 99/58 L 94/55 L Pulse Oximetry 96 98 98 03/15/20 15:01 Pulse Rate 77 Respiratory Rate 19 Blood Pressure 103/78 Blood Pressure [Left Arm] Pulse Oximetry 96 <Juliana Felton DO - Last Filed: 03/16/20 07:37> Orders Ordered: Discontinued Medications Acetaminophen (Tylenol) 650 mg PO NOW ONE Stop: 03/15/20 14:48 Last Admin: 03/15/20 14:50 Dose: 650 mg Documented by: HENRRY Albuterol (Ventolin) 2.5 mg INH NOW ONE Stop: 03/15/20 12:38 Last Admin: 03/15/20 12:59 Dose: 2.5 mg Documented by: JULIANN Sodium Chloride (Normal Saline 0.9%) 500 mls @ 1,000 mls/hr IV BOLUS ONE Stop: 03/15/20 12:13 Last Infusion: 03/15/20 12:24 Dose: 0 mls/hr Documented by: Admin: 03/15/20 11:55 Dose: 1,000 mls/hr Documented by: HENRRY Sodium Chloride (Normal Saline 0.9%) 1,000 mls @ 125 mls/hr IV CONT TRICIA Last Infusion: 03/15/20 23:04 Dose: 125 mls/hr Documented by: Infusion: 03/15/20 15:01 Dose: 125 mls/hr Documented by: Admin: 03/15/20 12:53 Dose: 125 mls/hr Documented by: HENRRY Vital Signs Vital signs: Vital Signs - 8 hr 03/15/20 14:13 03/15/20 14:22 03/15/20 14:23 Pulse Rate 79 88 88 Respiratory Rate 16 24 24 Blood Pressure Blood Pressure [Left Arm] 99/58 L 94/55 L Pulse Oximetry 96 98 98 03/15/20 15:01 Pulse Rate 77 Respiratory Rate 19 Blood Pressure 103/78 Blood Pressure [Left Arm] Pulse Oximetry 96 Medical Decision Making <MATA Arriaga - Last Filed: 03/15/20 22:09> Differential Diagnosis Differential Diagnosis: Electrolytes imbalance, hypoglycemia, hypertension, AL, stroke Medical Records Medical records reviewed: Yes I reviewed the patient's medical records. Lab Data Lab results reviewed: Yes I reviewed the patient's lab results. Result diagrams: 03/15/20 10:50 03/15/20 10:50 Labs: Lab Results 03/15/20 03/15/20 03/15/20 Range/Units 10:50 10:50 10:50 WBC 9.3 (4.5-11.0) X10^3/uL RBC 5.08 (4.5-5.9) X10^6/uL Hgb 14.3 (13.5-17.5) g/dL Hct 42.4 (41-53) % MCV 83.3 (80-100) fL MCH 28.1 (26-34) PG MCHC 33.7 (30-36) % RDW 15.1 H (11.6-14.8) % Plt Count 408 H (150-400) X10^3/uL Neut % (Auto) 74.6 (50-75) % Lymph % (Auto) 15.8 L (25-40) % Placer % (Auto) 8.1 (3-14) % Eos % (Auto) 0.8 L (2-4) % Baso % (Auto) 0.7 (0-2) % Neut # (Auto) 6900 (9018-4522) /uL Lymph # (Auto) 1500 (3716-4149) /uL Placer # (Auto) 800 (0-900) /uL Eos # (Auto) 100 (0-450) /uL Baso # (Auto) 100 (0-100) /uL PT 11.0 (10.1-12.7) SECONDS INR 1.0 (0.9-1.3) APTT 36 (26.4-36.2) SECONDS Sodium 137 (137-145) mmol/L Potassium 4.2 (3.4-5.1) mmol/L Chloride 105 (98-107) mmol/L Carbon Dioxide 19 L (22-32) mmol/L BUN 39 H (9-20) mg/dL Creatinine 1.91 H (0.66-1.25) mg/dL Estimated GFR 35.5 L (>60) mL/min BUN/Creatinine Ratio 20.4 (6-22) Glucose 209 H (80-110) mg/dL Calcium 8.7 (8.4-10.2) mg/dL Total Bilirubin 0.5 (0.2-1.3) mg/dL AST 27 (17-59) IU/L ALT 27 (<50) IU/L Alkaline Phosphatase 79 (38-126) U/L Total Creatine Kinase 104 (55-170) U/L CK-MB (CK-2) 1.26 (<2.37) ng/mL CK-MB (CK-2) Rel Index 1.2 L (1.5-5.0) % Troponin I < 0.012 (0.01-0.034) ng/mL Total Protein 7.6 (6.3-8.2) g/dL Albumin 4.1 (3.5-5.0) g/dL Globulin 3.5 (1.7-4.1) g/dL Albumin/Globulin Ratio 1.2 (1.0-2.8) Lipase 218 (23-300) U/L Point of Care Testing Glucose POC 160 Urine Dip Bedside Urine Glucose 1000 mg/dl Bedside Urine Bilirubin ++ 2 Bedside Urine Ketone +/- 5 Urine Specific [place] 1.015 Bedside Urine Occult Blood +/- Bedside Urine pH 5.5 Bedside Urine Protein +/- 15 Bedside Urine Urobilinogen - Negative Bedside Urine Nitrite - Negative Bedside Urine Leukocytes - Negative Esterase Point of care testing: Point of Care Testing Glucose POC 160 Urine Dip Bedside Urine Glucose 1000 mg/dl Bedside Urine Bilirubin ++ 2 Bedside Urine Ketone +/- 5 Urine Specific [place] 1.015 Bedside Urine Occult Blood +/- Bedside Urine pH 5.5 Bedside Urine Protein +/- 15 Bedside Urine Urobilinogen - Negative Bedside Urine Nitrite - Negative Bedside Urine Leukocytes - Negative Esterase Imaging Data Chest x-ray: Radiologist's Impression: [address] [address] XRay Report Signed Patient: Blas Gomez SR#: [id number] : 4Acct:[id number] Age/Sex: 64 / MDate of Service: 03/15/20 Loc: ED Accession Number: [id number] Procedure: XR chest 1V Ordering Provider: Juliana Felton D.O. PROCEDURE: XR CHEST 1V INDICATIONS: chest pain TECHNIQUE: One view of the chest was acquired. COMPARISON: [facility], CT, CHEST/ABD/PEL WITH CONTRAST, 05/08/2013, 1:48. [facility], CR, CHEST 1 VIEW, 05/08/2013, 0:34. [facility], CR, XR CHEST 2V, 12/24/2018, 21:55. FINDINGS: Surgical changes and devices: Post CABG changes are seen. Lungs and pleura: Lungs are clear. No pleural effusions or pneumothorax. Mediastinum: Mediastinal contours appear normal. Heart size is normal. Bones and chest wall: No suspicious bony lesions. Age-appropriate bony degenerative changes are seen. Overlying soft tissues appear unremarkable. IMPRESSION: Unremarkable portable chest for age. Postoperative and degenerative changes are seen. Dictated by: Cecilio Olsen M.D. on 03/15/2020 at 9:59 Approved by: Cecilio Olsen M.D. on 03/15/2020 at 10:00 CT scan - head: Radiologist's Impression: [place] [address] CT Scan Report Signed Patient: Blas Gomez SR#: [id number] : 4Acct:[id number] Age/Sex: 64 / MDate of Service: 03/15/20 Loc: ED Accession Number: [id number] Procedure: CT head/brain wo con Ordering Provider: Boy Arenas PROCEDURE: CT HEAD/BRAIN WO CON INDICATIONS: generalized weankess, headaches TECHNIQUE: Noncontrast 4.5 mm thick angled axial sections acquired from the foramen magnum to the vertex, with coronal and sagittal reformats. For radiation dose reduction, the following was used: automated exposure control, adjustment of mA and/or kV according to patient size. COMPARISON: [facility], CT, CT BRAIN WO CON, 10/11/2015, 15:54. FINDINGS: Image quality: Excellent. CSF spaces: Basal cisterns are patent. No extra-axial fluid collections. Ventricles are normal in size and shape. Brain: No midline shift. No intracranial masses or hemorrhage. Lou-white matter interface is normal. Skull and face: Calvarium and visualized facial bones are intact, without suspicious lesions. Sinuses: Visualized sinuses and mastoids are clear. IMPRESSION: Negative head CT. No acute intracranial hemorrhage. Dictated by: Julio Cesar Parker M.D. on 03/15/2020 at 11:08 Approved by: Julio Cesar Parker M.D. on 03/15/2020 at 11:18 ECG Data Attestation: I personally reviewed and interpreted this ECG as follows: Prior ECG tracings: available for review Interpretation: Sinus rhythm rate at 92. Right dominant axis. GA interval 148, QR duration 94 QT/QTC 362/[address] elevation or depression Previous EKG sinus rhythm and sinus tachycardia with incomplete RBBB. MDM Narrative Medical decision making narrative: This is a 64-year-old gentleman who presents to ED with generalized weakness for last 10-11 days without focal neural deficit. Patient had occasional headache but no facial droops, palmar drift, vision change, balance problem. Patient has chronic medical history such as hypertension, diabetes on oral hypoglycemic agents and long and short acting insulins. Patient takes 2 hypertensive medications-lisinopril and metoprolol. Patient's daughter states patient has decreased appetite and eats about 1 meal per day without much weight loss. Patient's EKG was normal sinus rhythm rate in 92. Within normal H&H without signs of anemia. Cardiac enzymes were negative. CMP shows elevated BUN (39), Creatinine (1.9), and eGFR (35.5). In the past baseline creatinine was 1.5-1.6 with estimated GFR of 43-47 which shows worsening kidney function today. POC urine test indicates Occult blood, protein, urine bilirubin and urine glucose without signs of infection. Daughter of patient reports patient's blood sugar was running around 35 this morning and had something to eat. Patient had taken 40 units of Humalog per sliding scale 2 hours before coming into ED and along Soliquia 100/33 According to the patient's daughter, patient is on multiple hypoglycemic agents due to significantly elevated blood glucose without these medications in the past. Initial FSBG was 207 and additional FSBG was obtained over 5 hour period and last FSBG before dc to home was 141 after a box of juice and a string cheese. Head CT does not show acute findings and the patient's neuro exam was unremarkable. During the initial encounter, noticed patient's BP in right arm as 89/52 and left arm as 86/54 which does correlate. According to daughter, patient's blood pressure was much elevated in left arm and denies history of aortic disease. Patient already had taken lisinopril and metoprolol this morning for HTN. Patient was provided with 500 mL of normal saline and gentle IV hydration thereafter. Patient reports feeling improved and was able to ambulate without dizziness, balance difficulty after hours. Patient continue to stay in Slightly hypotensive while in med to upper 90's SBP. It is likely that patient has generalized weakness may due to labile glucose, supra therapeutic hypoglycemic agents and hypertensive medications. Patient advised to check his fingerstick blood glucose frequently especially before the meals and for sliding scale doses. Patient advised to hold lisinopril if his blood pressure is less than 120 in systolic and advised to follow up with primary care physician to discuss possible medication dose changes. Also, advised to follow-up with kidney function test which should be repeated and monitored. Patient advised to take time before position changes and hydrate adequately and eat small meals even there is not much appetite. Return precautions were discussed with the patient and patient and daughter verbalized understanding and in agreement with the treatment plan. <Juliana Felton, DO - Last Filed: 03/16/20 07:37> Lab Data Lab results reviewed: Yes I reviewed the patient's lab results. Labs: Lab Results 03/15/20 03/15/20 03/15/20 Range/Units 10:50 10:50 10:50 WBC 9.3 (4.5-11.0) X10^3/uL RBC 5.08 (4.5-5.9) X10^6/uL Hgb 14.3 (13.5-17.5) g/dL Hct 42.4 (41-53) % MCV 83.3 (80-100) fL MCH 28.1 (26-34) PG MCHC 33.7 (30-36) % RDW 15.1 H (11.6-14.8) % Plt Count 408 H (150-400) X10^3/uL Neut % (Auto) 74.6 (50-75) % Lymph % (Auto) 15.8 L (25-40) % Placer % (Auto) 8.1 (3-14) % Eos % (Auto) 0.8 L (2-4) % Baso % (Auto) 0.7 (0-2) % Neut # (Auto) 6900 (4337-8216) /uL Lymph # (Auto) 1500 (2069-2548) /uL Placer # (Auto) 800 (0-900) /uL Eos # (Auto) 100 (0-450) /uL Baso # (Auto) 100 (0-100) /uL PT 11.0 (10.1-12.7) SECONDS INR 1.0 (0.9-1.3) APTT 36 (26.4-36.2) SECONDS Sodium 137 (137-145) mmol/L Potassium 4.2 (3.4-5.1) mmol/L Chloride 105 (98-107) mmol/L Carbon Dioxide 19 L (22-32) mmol/L BUN 39 H (9-20) mg/dL Creatinine 1.91 H (0.66-1.25) mg/dL Estimated GFR 35.5 L (>60) mL/min BUN/Creatinine Ratio 20.4 (6-22) Glucose 209 H (80-110) mg/dL Calcium 8.7 (8.4-10.2) mg/dL Total Bilirubin 0.5 (0.2-1.3) mg/dL AST 27 (17-59) IU/L ALT 27 (<50) IU/L Alkaline Phosphatase 79 (38-126) U/L Total Creatine Kinase 104 (55-170) U/L CK-MB (CK-2) 1.26 (<2.37) ng/mL CK-MB (CK-2) Rel Index 1.2 L (1.5-5.0) % Troponin I < 0.012 (0.01-0.034) ng/mL Total Protein 7.6 (6.3-8.2) g/dL Albumin 4.1 (3.5-5.0) g/dL Globulin 3.5 (1.7-4.1) g/dL Albumin/Globulin Ratio 1.2 (1.0-2.8) Lipase 218 (23-300) U/L Point of Care Testing Glucose POC 160 Urine Dip Bedside Urine Glucose 1000 mg/dl Bedside Urine Bilirubin ++ 2 Bedside Urine Ketone +/- 5 Urine Specific [place] 1.015 Bedside Urine Occult Blood +/- Bedside Urine pH 5.5 Bedside Urine Protein +/- 15 Bedside Urine Urobilinogen - Negative Bedside Urine Nitrite - Negative Bedside Urine Leukocytes - Negative Esterase Point of care testing: Point of Care Testing Glucose POC 160 Urine Dip Bedside Urine Glucose 1000 mg/dl Bedside Urine Bilirubin ++ 2 Bedside Urine Ketone +/- 5 Urine Specific [place] 1.015 Bedside Urine Occult Blood +/- Bedside Urine pH 5.5 Bedside Urine Protein +/- 15 Bedside Urine Urobilinogen - Negative Bedside Urine Nitrite - Negative Bedside Urine Leukocytes - Negative Esterase MDM Narrative Medical decision making narrative: Patient case discussed at length. Suspect patient is having issues with glucose control an with worsening renal function, decreased appetite and intake and may need to decrease his humalog dose. He has also had generalized weakness and in the department BP has been running low. No focal neurologic changes. Plan to hold BP meds at this time. Patient recommended not to take humalog without rechecking his glucose if he has a hypoglycemic episode and to decrease his sliding scale at this time along with short term follow up with pcp. Discharge Plan Departure Patient Disposition: Home Clinical Impression: Generalized weakness, Hypoglycemia due to insulin, Hypotension due to drugs Discharge Date/Time: 03/15/20 15:04 Instructions: DI for Hypoglycemia, DI for Muscle Weakness, DI for Hypotension Activity Restrictions/Additional Instructions: You have been diagnosed with [generalized weakness likely from low blood sugar and low blood pressure. Head CT and chest x-ray were negative for acute findings. EKG was normal sinus rhythm. Urine test does not indicate infection. CBC was unremarkable. Chemistry test shows moderate dehydration and decreased kidney function. Creatinine of 1.91 with estimated GFR of 35.5 which has decreased from previous blood test in December 2018 of eGFR of 43-47 and creatinine of 1.5-1.6. Cardiac enzymes were negative.]. What to do: *Take your medications as directed. Please check your fingersticks glucose before using short-acting insulin Humalog. If your blood pressures last than 120 in systolic please hold lisinopril 20 mg dose. Please is small meals even your appetite has decreased until you discuss your insulin dose changes to prevent hypoglycemic episodes. Please contact your primary care physician's to be seen soon to discuss adjusting your long-acting insulins and blood pressure medications dose. Please be cautious not to fall from your symptoms and take your time with changing of position. If her blood glucose low, please take glucose tab, juice, carbohydrates to counteract this. *Follow up with your primary care provider in 2-3 days, call for an appointment. Let them know you were seen in the ED and that we asked you to be seen in follow up. *Return to ED if you have any new, worsening, or concerning symptoms, such as [chest pain, breathing difficulty, unable to tolerate fluids, signs of stroke, fever, or any acute concerns]. Prescriptions: No Action cetirizine 10 mg Tablet 10 mg PO DAILY RF: 0 metoprolol succinate [Toprol XL] 50 mg Tablet Extended Release 24 Hr 50 mg PO DAILY RF: 0 ranitidine HCl [Zantac] 300 mg Tablet 300 mg PO BEDTIME RF: 0 lisinopril 20 mg Tablet 20 mg PO DAILY RF: 0 fexofenadine [Allergy Relief (fexofenadine)] 180 mg Tablet 180 mg PO DAILY RF: 0 aspirin 81 mg Tablet,Delayed Release (Dr/Ec) 81 mg PO DAILY RF: 0 simvastatin [Zocor] 40 mg Tablet 40 mg PO QPM RF: 0 tamsulosin [Flomax] 0.4 mg Capsule 0.4 mg PO DAILY RF: 0 gabapentin 800 mg Tablet 800 mg PO TID RF: 0 ferrous sulfate 325 mg (65 mg iron) Tablet 325 mg PO DAILY RF: 0 omeprazole 20 mg Capsule,Delayed Release(Dr/Ec) 20 mg PO DAILY RF: 0 naproxen [Naprosyn] 500 mg Tablet 500 mg PO BID RF: 0 metformin [Glucophage XR] 750 mg Tablet Extended Release 24 Hr 750 mg PO QPM RF: 0 Pulmicort Flexhaler 180 mcg/actuation Aerosol Powdr Breath Activated 2 inh INHALATION Q12H RF: 0 Combivent Respimat 20-100 mcg/actuation Mist 1 puff INHALATION 6XD RF: 0 Soliqua 100/33 100 unit-33 mcg/mL Insulin Pen 60 units subcut QAM RF: 0 ProAir HFA inhaler 1 puff Inhalation Q4-6H PRN (Reason: Wheezing) RF: 0 prednisone 20 mg Tablet 40 mg PO DAILY Qty: 4 RF: 0 insulin lispro [Humalog U-100 Insulin] 100 unit/mL Solution RF: 0 Jardiance 25 mg PO DAILY RF: 0
[2020-03-15] MEDS: SODIUM CHLORIDE 0.9% 1,000 ML 125 ML IV (12:53)
[2020-03-15] MEDS: ALBUTEROL 2.5 MG/3 ML NEB (ADULT) INH (12:59)
[2020-03-15] MEDS: ACETAMINOPHEN 325 MG TABLET 650 MG PO (14:50)
== END 2020-03-15 15:04 | disposition home or self-care (01) ==
PROVIDERS: Emergency Medicine; Emergency Provider Nurse Practitioner Family
DX: E11.649 Type 2 diabetes mellitus with hypoglycemia without coma (principal); T38.3X5A Adverse effect of insulin and oral hypoglycemic [antidiabetic] drugs, initial encounter; Z79.4 Long term (current) use of insulin; I95.2 Hypotension due to drugs; R07.9 Chest pain, unspecified; R53.1 Weakness; R51 Headache; I10 Essential (primary) hypertension
CPT/HCPCS: 36415; 70450; 71045; 80053; 81003; 82550; 82553; 82962; 83690; 84484; 85025; 85610; 85730; 93005; 94640; 96360; 96361; 99285; J7613

== ENCOUNTER 2025-10-03 18:20 | Emergency (ER) | payer MEDICARE, SELFPAY ==
--- NOTE | 2025-10-03 18:34 | ED.GENADULT ---
HPI - General Adult General Chief complaint: Extremity Problem,Nontraumatic Stated complaint: Left hip and leg pain Time Seen by Provider: 10/03/25 18:30 History of Present Illness HPI narrative: 70-year-old gentleman former smoker, significant past medical history of diabetes, CAD, hypertension, quadruple bypass 3 years ago presents to the ER with complaint of right leg pain intermittently for the past 1-2 weeks. He denies any chest pain, shortness of breath, fever, chills, bodyaches, back pain, abdominal pain trauma to the area or any recent long distance travel. Other than what is stated 14 point review of system is negative. Related Data Home Medications ?Medication ?Instructions ?Recorded ?Confirmed ProAir HFA 1 puff inhalation Q4-6H PRN 12/25/18 12/25/18 Wheezing aspirin 81 mg tablet,delayed 81 mg PO DAILY 12/25/18 12/25/18 release budesonide 180 mcg/actuation 2 inh inhalation Q12H 12/25/18 12/25/18 breath activated powder inhaler (Pulmicort Flexhaler) cetirizine 10 mg tablet 10 mg PO DAILY 12/25/18 12/25/18 ferrous sulfate 325 mg (65 mg 325 mg PO DAILY 12/25/18 12/25/18 iron) tablet fexofenadine 180 mg tablet 180 mg PO DAILY 12/25/18 12/25/18 (Allergy Relief (fexofenadine)) gabapentin 800 mg tablet 800 mg PO TID 12/25/18 12/25/18 insulin glargine 100 60 units SUBCUT QAM 12/25/18 12/25/18 unit-lixisenatide 33 mcg/mL subcutaneous pen (Soliqua 100/33) ipratropium 20 mcg-albuterol 100 1 puff inhalation 6XD 12/25/18 12/25/18 mcg/actuation mist for inhalation (Combivent Respimat) lisinopril 20 mg tablet 20 mg PO DAILY 12/25/18 12/25/18 metformin 750 mg tablet,extended 750 mg PO QPM 12/25/18 12/25/18 release 24 hr (Glucophage XR) metoprolol succinate 50 mg 50 mg PO DAILY 12/25/18 12/25/18 tablet,extended release 24 hr (Toprol XL) naproxen 500 mg tablet (Naprosyn) 500 mg PO BID 12/25/18 12/25/18 omeprazole 20 mg capsule,delayed 20 mg PO DAILY 12/25/18 12/25/18 release ranitidine HCl 300 mg tablet 300 mg PO BEDTIME 12/25/18 12/25/18 (Zantac) simvastatin 40 mg tablet (Zocor) 40 mg PO QPM 12/25/18 12/25/18 tamsulosin 0.4 mg capsule (Flomax) 0.4 mg PO DAILY 12/25/18 12/25/18 Jardiance 25 mg PO DAILY 03/15/20 03/15/20 insulin lispro 100 unit/mL sliding scale dose 03/15/20 subcutaneous solution (Humalog U-100 Insulin) Previous Rx's ?Medication ?Instructions ?Recorded prednisone 20 mg tablet 40 mg (2 x 20 mg) PO DAILY #4 tabs 12/25/18 hydrocodone 5 mg-acetaminophen 325 1 tab PO Q4-6H PRN pain #20 tabs 10/03/25 mg tablet Allergies Allergy/AdvReac Type Severity Reaction Status Date / Time No Known Drug Allergies Allergy Verified 03/15/20 10:41 Review of Systems Review of Systems ROS Unobtainable: All systems reviewed & are unremarkable except as noted in HPI and below Patient History Medical History (Updated 10/03/25 @ 21:13 by Lamont Roque DO) Myocardial infarction Coronary artery disease COPD (chronic obstructive pulmonary disease) with emphysema Diabetes mellitus Hypertension Surgical History Hx of four vessel coronary artery bypass graft History of cholecystectomy Family History Father No problems noted. Mother Hypertension Brother No problems noted. Sister No problems noted. Social History household members: spouse Smoking Status: Former smoker alcohol intake: former alcohol intake frequency: holidays/special occasions only Exam Narrative Exam Narrative: GENERAL: [70] year old patient appears stated age. Well-developed patient, in mild distress. HEAD: Atraumatic. Normocephalic. EYES: Pupils equal round and reactive. Extraocular motions intact. No scleral icterus. No injection or drainage. ENT: Nose without bleeding, purulent drainage. Throat without erythema, tonsillar hypertrophy or exudate. Airway patent. NECK: Trachea midline. Non tender CARDIOVASCULAR: Regular rate and rhythm without murmurs, gallops, or rubs. RESPIRATORY: Clear to auscultation. Breath sounds equal bilaterally. No wheezes, rales, or rhonchi. GASTROINTESTINAL: Abdomen soft, non-tender, nondistended. EXTREMITIES: Left leg tender to palpate proximal posterior thigh with diminished pulses posterior tib and dorsalis pedis but obtainable through ultrasound. Both feet were cold on palpation but worse on the left leg BACK: Nontender without deformity or crepitance. No flank tenderness. NEURO: AOx3. SKIN: No rash or erythema of visible areas Initial Vital Signs Initial Vital Signs: Vital Signs Temperature 98.5 F 10/03/25 18:40 Pulse Rate 88 10/03/25 18:40 Respiratory Rate 17 10/03/25 18:40 Blood Pressure 161/59 H 10/03/25 18:40 Pulse Oximetry 99 10/03/25 18:40 Oxygen Delivery Method Room Air 10/03/25 18:40 Course Orders Ordered: ED Orders 10/03/25 18:36 US periph venous low extrem lt Stat 10/03/25 18:39 CT angio abd aorta runoff Stat CMP [Comprehensive Metabolic Panel] Stat 10/03/25 18:40 CBC Auto Diff [Complete Blood Count AUTO DIFF] Stat 10/03/25 19:15 XR pelvis 1-2V Stat Discontinued Medications Hydromorphone HCl (Hydromorphone 1 Mg/Ml Syringe) 1 mg IV NOW ONE Stop: 10/03/25 19:06 Last Admin: 10/03/25 19:05 Dose: 1 mg Documented By: DAKSHA Morphine Sulfate (Morphine 4 Mg/Ml Inj) 4 mg IV NOW ONE Stop: 10/03/25 20:46 Last Admin: 10/03/25 20:49 Dose: 4 mg Documented By: ALEXI Vital Signs Vital signs: Vital Signs - 8 hr 10/03/25 18:40 Temperature 98.5 F Pulse Rate 88 Respiratory Rate 17 Blood Pressure 161/59 H Pulse Oximetry 99 Oxygen Delivery Method Room Air Medical Decision Making Lab Data 10/03/25 18:40 10/03/25 18:39 Labs: Lab Results 12/03/25 12/03/25 Range/Units 18:39 18:40 WBC 9.3 (4.5-11.0) X10^3/uL RBC 4.81 (4.5-5.9) X10^6/uL Hgb 11.8 L (13.5-17.5) g/dL Hct 35.8 L (41-53) % MCV 74.3 L (80-100) fL MCH 24.4 L (26-34) PG MCHC 32.9 (30-36) % RDW 15.0 H (11.6-14.8) % Plt Count 745 H (150-400) X10^3/uL Neut % (Auto) 79.6 H (50-75) % Lymph % (Auto) 8.7 L (25-40) % Hardee % (Auto) 10.3 (3-14) % Eos % (Auto) 0.8 L (2-4) % Baso % (Auto) 0.6 (0-2) % Neut # (Auto) 7400 H (2468-0056) /uL Lymph # (Auto) 800 L (0119-1828) /uL Hardee # (Auto) 1000 H (0-900) /uL Eos # (Auto) 100 (0-450) /uL Baso # (Auto) 100 (0-100) /uL Sodium 139 (137-145) mmol/L Potassium 4.2 (3.4-5.1) mmol/L Chloride 100 (98-107) mmol/L Carbon Dioxide 29 (22-32) mmol/L BUN 14 (9-20) mg/dL Creatinine 0.54 L (0.66-1.25) mg/dL Estimated GFR > 60 (>60) mL/min BUN/Creatinine Ratio 25.9 H (6-22) Glucose 153 H (70-99) mg/dL Calcium 8.5 (8.4-10.2) mg/dL Total Bilirubin 0.4 (0.2-1.3) mg/dL AST 13 L (17-59) IU/L ALT 8 (<50) IU/L Alkaline Phosphatase 98 (38-126) U/L Total Protein 8.4 H (6.3-8.2) g/dL Albumin 4.2 (3.5-5.0) g/dL Globulin 4.2 H (1.7-4.1) g/dL Albumin/Globulin Ratio 1.0 (1.0-2.8) Imaging Data Extremity x-ray #1: Radiologist's Impression: [address] [id number] XRay Report Signed Patient: Blas Gomez SR MR#: [id number] : 1955 Acct:[id number] Age/Sex: 70 / M Date of Service: 10/03/25 Loc: ED Accession Number: [id number] Procedure: XR pelvis 1-2V Ordering Provider: Lamont Roque D.O. PROCEDURE: XR PELVIS 1-2V INDICATIONS: pain TECHNIQUE: Single view(s) of the pelvis acquired. COMPARISON: None. FINDINGS: Bones: No fractures or dislocations. No suspicious bony lesions. Moderate right greater than left hip degenerative changes. Soft tissues: Visualized bowel gas pattern is normal. No suspicious soft tissue calcifications. IMPRESSION: No acute bony abnormality. If there is clinical concern for internal derangement, consider further evaluation with CT. Approved by: Sangeetha Fang M.D.,Ph.D. on 10/03/2025 at 19:44 CT scan - abdomen/pelvis: Radiologist's Impression: [address] [address] [address] Scan Report Signed Patient: Blas Gomez SR MR#: [id number] : 1955 Acct:[id number] Age/Sex: 70 / M Date of Service: 10/03/25 Loc: ED Accession Number: [id number] Procedure: CT angio abd aorta runoff Ordering Provider: Lamont Roque D.O. PROCEDURE: CT ANGIO ABD AORTA RUNOFF INDICATIONS: L leg pain and numbness with diminished pulses TECHNIQUE: After the administration of intravenous contrast, 2.5 mm sections acquired from T12 to the feet, with optional delayed image acquisition from the knees to the feet. 3-dimensional maximum intensity projection (MIP) coronal and sagittal reformats, and/or 3-dimensional volume rendering reformatting was then performed. For radiation dose reduction, the following was used: automated exposure control. COMPARISON: None. FINDINGS: Image Quality: Diagnostic. Abdominal aorta: No evidence for aneurysmal dilatation of the abdominal aorta or iliac vessels. No evidence for dissection/acute aortic syndrome. Scattered atherosclerotic calcifications throughout. No significant intramural hematomas. Splanchnic vessels: Patent Right lower extremity: Scattered atherosclerosis without evidence for aneurysmal dilatation, dissection, or hemodynamically significant stenosis. Of note, the distal arterial vasculature of the foot is not well visualized. This is likely related to scanning characteristics. Mild subcutaneous soft tissue swelling. Left lower extremity: Scattered atherosclerosis without evidence for aneurysmal dilatation, dissection or hemodynamically significant stenosis. Of note, the distal arterial vasculature of the foot is not well visualized. This is likely related to scanning characteristics. Mild soft tissue swelling of the left foot. No organized fluid collection seen. Lower Chest: Bibasilar atelectasis. Heart size is normal. Coronary atherosclerotic vascular calcifications are noted. Partially imaged median sternotomy wires. No substernal fluid collection. ABDOMEN: Liver: No solid mass. Hepatic steatosis. No focal lesion identified. Gallbladder: Absent Biliary ducts: No biliary dilation. Pancreas: Homogeneous enhancement without focal lesions or pancreatic ductal dilatation. No peripancreatic inflammation or organized fluid collections. Spleen: Size is within normal limits. Adrenal Glands: No adrenal nodules. Kidneys and Ureters: No hydronephrosis. No solid mass. No complex renal cystic lesion which requires follow up. Stomach and Bowel: Normal colonic caliber, without significant wall thickening. Moderate fecal burden seen throughout the colon. No evidence for small bowel obstruction or associated inflammatory changes. Normal appendix. Peritoneum: No abnormal intraperitoneal fluid. No free air. Ventral Wall: No hernia. Abdominal Nodes: No retroperitoneal or mesenteric adenopathy by size criteria. Vessels: Aorta and inferior vena cava are normal in size. Atherosclerosis. PELVIS: Pelvic Organs: Prostatomegaly. Bladder: Unremarkable. Pelvic Nodes: No enlarged lymph nodes. Miscellaneous: No inguinal hernias are seen. Bones: No aggressive osseous abnormality. Visualized osseous structures appear intact without acute fracture or focal destructive lesion. No acute compression fractures of the imaged spine. Multilevel spondylosis of the imaged spine. IMPRESSION: CT angiogram of the abdomen and pelvis without evidence for aneurysms, dissection, or high-grade stenosis. No definite occlusion identified. Of note, the distal segments of the arterial vasculature of the bilateral foot were not well visualized. Specifically, the distal most segments of the left posterior tibial artery just proximal to the plantar arteries are not well opacified relative to the right side. No acute abnormalities identified in the abdomen or pelvis. Other chronic/non-acute findings as above. Dictated by: Reji Acevedo M.D. on 10/03/2025 at 20:11 US - DVT: Radiologist's Impression: [address] [address] Ultrasound Report Signed Patient: Blas Gomez SR MR#: [id number] : 1955 Acct:[id number] Age/Sex: 70 / M Date of Service: 10/03/25 Loc: ED Accession Number: [id number] Procedure: US perip venous low extrem lt Ordering Provider: Lamont Roque D.O. PROCEDURE: US PERIP VENOUS LOW EXTREM LT INDICATIONS: L leg pain TECHNIQUE: Real-time imaging, as well as color and pulse Doppler interrogation, were performed of the lower extremity deep veins from the inguinal ligament to the popliteal fossa, with documentation of the visualized calf veins. COMPARISON: None. FINDINGS: The common femoral, femoral, popliteal veins are normally compressible, and free of intraluminal thrombus. The calf veins are not well visualized. Color and pulse Doppler demonstrate normal phasic intraluminal flow. There is normal augmentation response to distal compression maneuver. IMPRESSION: No findings of lower extremity deep venous thrombosis. The calf veins are not well visualized. Approved by: Sangeteha Fang M.D.,Ph.D. on 10/03/2025 at 20:04 [facility] Narrative Medical decision making narrative: All lab work, vital signs, nurse triage note, medication list, previous ER visits, and all imaging studies reviewed. WBC 9.3 hemoglobin 11.8 platelets 745 sodium 139 potassium 4.2 chloride 100 CO2 20 14 creatinine 0.54 glucose 153 AST 13 ALT 8 alk-phos 98 bili 0.4. Pelvic x-ray acute process. Ultrasound showed no DVT. Pelvic x-ray showed no acute bony abnormality. CT abdomen pelvis angio no evidence of aneurysm dissection or high-grade stenosis. No definite occlusion identified. Of note the distal segments of the arterial vasculature of the bilateral foot were not well visualized. Specifically the distal most segments of the left posterior tibial artery just proximal to the plantar arteries are not well opacified relative to the right side. No acute abnormalities identified in the abdomen or pelvis. Differential diagnosis DVT or superficial thrombophlebitis arthritis occlusion PVD PAD. DC home on [employer] prepack and [employer] prescription to follow up with PCP this week. Discharge Plan Departure Patient Disposition: Home Clinical Impression: Acute leg pain Instructions: DI for Leg Pain Activity Restrictions/Additional Instructions: Return with new or worsening symptoms. Follow up with PCP 1-2 days for re-evaluation. Take medication as directed. Prescriptions: New hydrocodone-acetaminophen 5-325 mg tablet 1 tab PO Q4-6H PRN (Reason: pain) Qty: 20 0RF No Action cetirizine 10 mg Tablet 10 mg PO DAILY metoprolol succinate [Toprol XL] 50 mg Tablet Extended Release 24 Hr 50 mg PO DAILY ranitidine HCl [Zantac] 300 mg Tablet 300 mg PO BEDTIME lisinopril 20 mg Tablet 20 mg PO DAILY fexofenadine [Allergy Relief (fexofenadine)] 180 mg Tablet 180 mg PO DAILY aspirin 81 mg Tablet,Delayed Release (Dr/Ec) 81 mg PO DAILY simvastatin [Zocor] 40 mg Tablet 40 mg PO QPM tamsulosin [Flomax] 0.4 mg Capsule 0.4 mg PO DAILY gabapentin 800 mg Tablet 800 mg PO TID ferrous sulfate 325 mg (65 mg iron) Tablet 325 mg PO DAILY omeprazole 20 mg Capsule,Delayed Release(Dr/Ec) 20 mg PO DAILY naproxen [Naprosyn] 500 mg Tablet 500 mg PO BID metformin [Glucophage XR] 750 mg Tablet Extended Release 24 Hr 750 mg PO QPM Pulmicort Flexhaler 180 mcg/actuation Aerosol Powdr Breath Activated 2 inh INHALATION Q12H Combivent Respimat 20-100 mcg/actuation Mist 1 puff INHALATION 6XD Soliqua 100/33 100 unit-33 mcg/mL Insulin Pen 60 units subcut QAM ProAir HFA inhaler 1 puff Inhalation Q4-6H PRN (Reason: Wheezing) prednisone 20 mg Tablet 40 mg PO DAILY Qty: 4 0RF insulin lispro [Humalog U-100 Insulin] 100 unit/mL Solution Rx Instructions: taken 40 units 2 hrs before to ED Jardiance 25 mg PO DAILY Stand Alone Forms: Patient Portal/API
--- NOTE | 2025-10-03 18:39 | DI.CT.S_ITS ---
PROCEDURE: CT ANGIO ABD AORTA RUNOFF INDICATIONS: L leg pain and numbness with diminished pulses TECHNIQUE: After the administration of intravenous contrast, 2.5 mm sections acquired from T12 to the feet, with optional delayed image acquisition from the knees to the feet. 3-dimensional maximum intensity projection (MIP) coronal and sagittal reformats, and/or 3-dimensional volume rendering reformatting was then performed. For radiation dose reduction, the following was used: automated exposure control. COMPARISON: None. FINDINGS: Image Quality: Diagnostic. Abdominal aorta: No evidence for aneurysmal dilatation of the abdominal aorta or iliac vessels. No evidence for dissection/acute aortic syndrome. Scattered atherosclerotic calcifications throughout. No significant intramural hematomas. Splanchnic vessels: Patent Right lower extremity: Scattered atherosclerosis without evidence for aneurysmal dilatation, dissection, or hemodynamically significant stenosis. Of note, the distal arterial vasculature of the foot is not well visualized. This is likely related to scanning characteristics. Mild subcutaneous soft tissue swelling. Left lower extremity: Scattered atherosclerosis without evidence for aneurysmal dilatation, dissection or hemodynamically significant stenosis. Of note, the distal arterial vasculature of the foot is not well visualized. This is likely related to scanning characteristics. Mild soft tissue swelling of the left foot. No organized fluid collection seen. Lower Chest: Bibasilar atelectasis. Heart size is normal. Coronary atherosclerotic vascular calcifications are noted. Partially imaged median sternotomy wires. No substernal fluid collection. ABDOMEN: Liver: No solid mass. Hepatic steatosis. No focal lesion identified. Gallbladder: Absent Biliary ducts: No biliary dilation. Pancreas: Homogeneous enhancement without focal lesions or pancreatic ductal dilatation. No peripancreatic inflammation or organized fluid collections. Spleen: Size is within normal limits. Adrenal Glands: No adrenal nodules. Kidneys and Ureters: No hydronephrosis. No solid mass. No complex renal cystic lesion which requires follow up. Stomach and Bowel: Normal colonic caliber, without significant wall thickening. Moderate fecal burden seen throughout the colon. No evidence for small bowel obstruction or associated inflammatory changes. Normal appendix. Peritoneum: No abnormal intraperitoneal fluid. No free air. Ventral Wall: No hernia. Abdominal Nodes: No retroperitoneal or mesenteric adenopathy by size criteria. Vessels: Aorta and inferior vena cava are normal in size. Atherosclerosis. PELVIS: Pelvic Organs: Prostatomegaly. Bladder: Unremarkable. Pelvic Nodes: No enlarged lymph nodes. Miscellaneous: No inguinal hernias are seen. Bones: No aggressive osseous abnormality. Visualized osseous structures appear intact without acute fracture or focal destructive lesion. No acute compression fractures of the imaged spine. Multilevel spondylosis of the imaged spine. IMPRESSION: CT angiogram of the abdomen and pelvis without evidence for aneurysms, dissection, or high-grade stenosis. No definite occlusion identified. Of note, the distal segments of the arterial vasculature of the bilateral foot were not well visualized. Specifically, the distal most segments of the left posterior tibial artery just proximal to the plantar arteries are not well opacified relative to the right side. No acute abnormalities identified in the abdomen or pelvis. Other chronic/non-acute findings as above. Dictated by: Reji Acevedo M.D. on 10/03/2025 at 20:11 Approved by: Reji Acevedo M.D. on 10/03/2025 at 20:35
[2025-10-03 18:40] VITALS: BP 161/59; BP 168/73; PULSE 85; PULSE 88; RESP 17; RESP 24; TEMP 36.9; O2SAT 98; O2SAT 99; BMI 25.4
[2025-10-03 18:48] LABS: Add Manual Diff / Slide Review NO; Hematocrit 35.8 % (41-53); Hemoglobin 11.8 g/dL (13.5-17.5); Lymphocytes Absolute Auto 800 /uL (1100-4500); Mean Corpuscular HGB Conc 32.9 % (30-36); Mean Corpuscular Hemoglobin 24.4 PG (26-34); Mean Corpuscular Volume 74.3 fL (80-100); Platelet Count 745 X10^3/uL (150-400)
[2025-10-03 19:08] LABS: Alanine Aminotransferase 8 IU/L (<50); Albumin 4.2 g/dL (3.5-5.0); Albumin Globulin Ratio 1.0 (1.0-2.8); Alkaline Phosphatase 98 U/L (38-126); Blood Urea Nitrogen 14 mg/dL (9-20); Calcium 8.5 mg/dL (8.4-10.2); Carbon Dioxide 29 mmol/L (22-32); Chloride 100 mmol/L (98-107); Estimated Glomerular Filt Rate > 60 mL/min (>60); Globulin 4.2 g/dL (1.7-4.1); Glucose 153 mg/dL (70-99); HEMOLYSIS < 15 (0-50); Potassium 4.2 mmol/L (3.4-5.1); Sodium 139 mmol/L (137-145); Total Protein 8.4 g/dL (6.3-8.2)
--- NOTE | 2025-10-03 19:15 | DI.RAD.S_ITS ---
PROCEDURE: XR PELVIS 1-2V INDICATIONS: pain TECHNIQUE: Single view(s) of the pelvis acquired. COMPARISON: None. FINDINGS: Bones: No fractures or dislocations. No suspicious bony lesions. Moderate right greater than left hip degenerative changes. Soft tissues: Visualized bowel gas pattern is normal. No suspicious soft tissue calcifications. IMPRESSION: No acute bony abnormality. If there is clinical concern for internal derangement, consider further evaluation with CT. Approved by: Sangeetha Fang M.D.,Ph.D. on 10/03/2025 at 19:44
[2025-10-03 19:43] VITALS: PULSE 98; O2SAT 94
--- NOTE | 2025-10-03 19:43 | PC.NURSE ---
Shift handoff report received from SIA Gallo
[2025-10-03 20:00] VITALS: PULSE 93; RESP 13; O2SAT 97
[2025-10-03 20:21] VITALS: BP 151/70; PULSE 93; RESP 16; O2SAT 97
[2025-10-03 20:30] VITALS: BP 144/66; PULSE 96; RESP 14; O2SAT 96
[2025-10-03] MEDS: MORPHINE 4 MG/ML INJ IV (20:49)
--- NOTE | 2025-10-03 21:11 | INF.NOTE ---
Pt was able to get out of gurney and take a couple steps with walker. His states his condition gets better and worse like this. States he has a walker at home. Feels safe to take him home.
== END 2025-10-03 21:29 | disposition home or self-care (01) ==
PROVIDERS: Emergency Provider Family Medicine
DX: M79.604 Pain in right leg (principal); I25.10 Atherosclerotic heart disease of native coronary artery without angina pectoris; E78.5 Hyperlipidemia, unspecified; I10 Essential (primary) hypertension; Z95.1 Presence of aortocoronary bypass graft; Z87.891 Personal history of nicotine dependence; Z79.84 Long term (current) use of oral hypoglycemic drugs; Z79.4 Long term (current) use of insulin
CPT/HCPCS: 36415; 72170; 75635; 80053; 85025; 93971; 96374; 96375; 99284; J1171; J2272; Q9967